=== PATIENT | female | born 1995 | race American Indian/Alaskan Native ===

== ENCOUNTER 2018-09-21 00:20 | Emergency (ER) | payer OTHER ==
[2018-09-21 01:04] LABS: Basophils % (Auto) 0.4 % (0.0-1.8); Eosinophils % (Auto) 0.1 % (0.0-4.3); Hematocrit 41.4 % (30.3-42.9); Hemoglobin 13.7 gm/dl (10.1-14.3); Lymphocytes # (Auto) 1.4 K/mm3 (1.2-5.4); Lymphocytes % (Auto) 20.2 % (13.4-35.0); Mean Corpuscular HGB Conc 33 % (30-34); Mean Corpuscular Volume 87 fl (79-97); Monocytes # (Auto) 0.3 K/mm3 (0.0-0.8); Monocytes % (Auto) 4.1 % (0.0-7.3); Platelet Count 239 K/mm3 (140-440); Red Blood Count 4.74 M/mm3 (3.65-5.03); Red Cell Distribution Width 13.1 % (13.2-15.2)
[2018-09-21 01:28] LABS: Alanine Aminotransferase 25 units/L (7-56); Albumin 4.8 g/dL (3.9-5); BUN/Creatinine Ratio 19; Blood Urea Nitrogen 13 mg/dL (7-17); Calcium 9.7 mg/dL (8.4-10.2); Hemolysis Index 2
[2018-09-21 01:58] LABS: Bilirubin,Urine SM (Negative); Blood,Urine MOD (Negative); Color,Urine Amber (Yellow); Mucus,Urine 3+ /HPF; Urobilinogen,Urine < 2.0 mg/dL (<2.0)
[2018-09-21 02:06] LABS: Ictotest,Urine Negative (Negative)
[2018-09-21] MEDS ORDERED: ZOFRAN ONE (02:07)
[2018-09-21] MEDS ORDERED: NACL 0.9% 1000 ML 1,000 ML ONE (02:07)
[2018-09-21] MEDS ORDERED: D50W (25GM) Syringe IV ONE (02:07)
[2018-09-21] MEDS ORDERED: HumuLIN R ONE ×2 (02:09→02:22)
[2018-09-21] MEDS ORDERED: DILAUDID ONE (02:11)
[2018-09-21] MEDS ORDERED: ZOFRAN IV ONE (02:22)
[2018-09-21] MEDS ORDERED: MORPHINE IV ONE (02:22)
[2018-09-21] MEDS ORDERED: NACL 0.9% 1000 ML 1,000 ML IV ONE (02:22)
--- NOTE | 2018-09-21 03:33 | Emergency Department Report ---
ED N/V/D HPI - General Chief complaint: Abdominal Pain Stated complaint: ABDOMINAL PAIN, NAUSEA AND VOMITING Time Seen by Provider: 09/21/18 01:46 Source: patient, family Mode of arrival: Ambulatory Limitations: No Limitations - History of Present Illness Initial comments: 23-year-old female presents to ED with complaint of her abdominal pain, nausea, vomiting, diarrhea 1 day. Patient denies fever or sick contacts. Patient states pain is located in diffuse abdomen, crampy in nature, but worse in the epigastric area. Patient is currently on her menstrual period. MD complaint: nausea, vomiting, diarrhea, abdominal pain -: days(s) (1) Description of Vomiting: food contents Description of Diarrhea: water Associated Abdominal Pain: Yes Location: epigastric Radiation: other (to diffuse abdomen) Severity: moderate Quality: cramping Consistency: constant Improves with: none Worsens with: none Associated Symptoms: nausea/vomiting. denies: fever/chills - Related Data Previous Rx's Medication Instructions Recorded Last Taken Type Dicyclomine [Bentyl] 20 mg PO QID PRN #20 tablet 09/21/18 Unknown Rx Ondansetron [Zofran Odt] 4 mg PO Q8HR PRN #20 tab.rapdis 09/21/18 Unknown Rx Allergies Allergy/AdvReac Type Severity Reaction Status Date / Time No Known Allergies Allergy Verified 09/21/18 02:25 ED Review of Systems ROS: Stated complaint: ABDOMINAL PAIN, NAUSEA AND VOMITING Other details as noted in HPI Comment: All other systems reviewed and negative Constitutional: denies: chills, fever Gastrointestinal: abdominal pain, nausea, vomiting, diarrhea ED Past Medical Hx - Past Medical History Previous Medical History?: No - Surgical History Past Surgical History?: No - Social History Smoking Status: Never Smoker Substance Use Type: Marijuana - Medications Home Medications: Home Medications Medication Instructions Recorded Confirmed Last Taken Type Dicyclomine [Bentyl] 20 mg PO QID PRN #20 tablet 09/21/18 Unknown Rx Ondansetron [Zofran Odt] 4 mg PO Q8HR PRN #20 tab.rapdis 09/21/18 Unknown Rx ED Physical Exam - General Limitations: No Limitations General appearance: alert, in no apparent distress - Head Head exam: Present: atraumatic, normocephalic - Eye Eye exam: Present: normal appearance - ENT ENT exam: Present: mucous membranes moist - Neck Neck exam: Present: normal inspection - Respiratory Respiratory exam: Present: normal lung sounds bilaterally. Absent: respiratory distress - Cardiovascular Cardiovascular Exam: Present: regular rate, normal rhythm - GI/Abdominal GI/Abdominal exam: Present: soft, tenderness (mild diffuse tenderness, worse in epigastric region). Absent: distended - Extremities Exam Extremities exam: Present: normal inspection - Neurological Exam Neurological exam: Present: alert, oriented X3 - Psychiatric Psychiatric exam: Present: normal affect, normal mood - Skin Skin exam: Present: warm, dry, intact, normal color. Absent: rash ED Course Vital Signs 09/21/18 09/21/18 09/21/18 02:11 02:22 03:00 Temperature 98.3 F Pulse Rate 73 Respiratory 18 Rate Blood Pressure 125/86 120/87 Blood Pressure 125/86 [Left] O2 Sat by Pulse 100 98 100 Oximetry ED Medical Decision Making - Lab Data Result diagrams: 09/21/18 00:37 09/21/18 00:37 - Medical Decision Making 23 yo F with gastroenteritis. Labs normal, vitals normal. IV fluids, morphine, zofran given. Tolerated PO. Will d/c at this time. Rx given for zofran and bentyl. Return precautions given - Differential Diagnosis pancreatitis, gastritis, gastroenteritis Critical care attestation.: If time is entered above; I have spent that time in minutes in the direct care of this critically ill patient, excluding procedure time. ED Disposition Clinical Impression: Acute gastroenteritis Disposition: DC-01 TO HOME OR SELFCARE Is pt being admited?: No Condition: Stable Instructions: Gastroenteritis (ED), Acute Nausea and Vomiting (ED) Prescriptions: Dicyclomine [Bentyl] 20 mg PO QID PRN #20 tablet PRN Reason: abdominal pain Ondansetron [Zofran Odt] 4 mg PO Q8HR PRN #20 tab.rapdis PRN Reason: Vomiting Referrals: [facility] [Provider Group] - 3-5 Days [facility] [Provider Group] - 3-5 Days Forms: Work/School Release Form(ED) Time of Disposition: 03:32
[2018-09-21 04:59] VITALS: BP 110/55
== END 2018-09-21 04:05 | disposition home or self-care (01) ==
LOC: ED 00:20
DX: K52.9 Noninfective gastroenteritis and colitis, unspecified (principal); F12.10 Cannabis abuse, uncomplicated
CPT/HCPCS: 36415; 80053; 81001; 83690; 84703; 85025; 87086; 96361; 96374; 96375; 99283; J2270; J2405; J7030; J1170; J1815

== ENCOUNTER 2018-09-22 00:19 | Emergency (ER) | payer OTHER ==
[2018-09-22 01:06] VITALS: BP 116/81
[2018-09-22] MEDS ORDERED: ZOFRAN IV ONE (01:23)
[2018-09-22] MEDS ORDERED: TORADOL IV ONE (01:23)
[2018-09-22] MEDS ORDERED: NACL 0.9% 1000 ML 1,000 ML IV ONE (01:23)
[2018-09-22] MEDS ORDERED: HALDOL IM ONE (01:32)
--- NOTE | 2018-09-22 01:36 | Emergency Department Report ---
ED N/V/D HPI - General Chief complaint: Nausea/Vomiting/Diarrhea Stated complaint: XRAY/ULTRASOUND Time Seen by Provider: 09/22/18 01:22 Source: patient Mode of arrival: Ambulatory Limitations: No Limitations - History of Present Illness Initial comments: 23-year-old female presents to ED with complaint of nausea, vomiting, abdominal pain. Patient seen by me for same on yesterday. At that time labs and vitals were normal. No emesis occurred in the ED and patient tolerated by mouth prior to discharge. Caleb, mother accompanies patient again, and states that patient has "projectile vomiting" and is still complaining same epigastric pain. Today I questioned patient about marijuana use. Patient admits to smoking marijuana "every other day," but has not had any since onset of symptoms. States diarrhea has resolved. MD complaint: nausea, vomiting, abdominal pain -: days(s) (3) Description of Vomiting: bilious Associated Abdominal Pain: Yes Location: epigastric Radiation: other (diffuse abdomen) Severity: moderate Quality: cramping Consistency: constant Improves with: none Worsens with: none Associated Symptoms: denies: fever/chills - Related Data Previous Rx's Medication Instructions Recorded Last Taken Type Dicyclomine [Bentyl] 20 mg PO QID PRN #20 tablet 09/21/18 Unknown Rx Ondansetron [Zofran Odt] 4 mg PO Q8HR PRN #20 tab.rapdis 09/21/18 Unknown Rx Promethazine [Phenergan TAB] 25 mg PO Q6HR PRN #20 tab 09/22/18 Unknown Rx Allergies Allergy/AdvReac Type Severity Reaction Status Date / Time No Known Allergies Allergy Verified 09/21/18 02:25 ED Review of Systems ROS: Stated complaint: XRAY/ULTRASOUND Other details as noted in HPI Comment: All other systems reviewed and negative Constitutional: denies: chills, fever Gastrointestinal: abdominal pain, nausea, vomiting ED Past Medical Hx - Past Medical History Previous Medical History?: No - Surgical History Past Surgical History?: No - Social History Smoking Status: Never Smoker Substance Use Type: None - Medications Home Medications: Home Medications Medication Instructions Recorded Confirmed Last Taken Type Dicyclomine [Bentyl] 20 mg PO QID PRN #20 tablet 09/21/18 Unknown Rx Ondansetron [Zofran Odt] 4 mg PO Q8HR PRN #20 tab.rapdis 09/21/18 Unknown Rx Promethazine [Phenergan TAB] 25 mg PO Q6HR PRN #20 tab 09/22/18 Unknown Rx ED Physical Exam - General Limitations: No Limitations General appearance: alert, in no apparent distress, other (appears uncomfortable) - Head Head exam: Present: atraumatic, normocephalic - Eye Eye exam: Present: normal appearance, PERRL, EOMI - ENT ENT exam: Present: mucous membranes moist - Neck Neck exam: Present: normal inspection - Respiratory Respiratory exam: Present: normal lung sounds bilaterally. Absent: respiratory distress - Cardiovascular Cardiovascular Exam: Present: regular rate, normal rhythm - GI/Abdominal GI/Abdominal exam: Present: soft, tenderness (mild diffuse abdominal tenderness, worse in epigastric area). Absent: distended - Extremities Exam Extremities exam: Present: normal inspection - Neurological Exam Neurological exam: Present: alert, oriented X3 - Psychiatric Psychiatric exam: Present: normal affect, normal mood - Skin Skin exam: Present: warm, dry, intact, normal color ED Course Vital Signs 09/22/18 09/22/18 01:04 02:16 Temperature 98.5 F Pulse Rate 76 Respiratory 18 17 Rate Blood Pressure 116/81 O2 Sat by Pulse 100 Oximetry - Consultations Consultation #1: 09/22/18 03:[address] scan. States just wants to go home. No emesis here in ED. Low likelihood for intraabdominal pathology given normal labs and vitals. Phenergan rx and GI follow-up given. Risks of leaving prior to end of workup explained to patient and mother. They understand. AMA form signed. ED Medical Decision Making - Lab Data Result diagrams: 09/22/18 01:35 09/22/18 01:37 - Differential Diagnosis gastroenteritis, gastritis, cannabinoid hyperemesis syndrome Critical care attestation.: If time is entered above; I have spent that time in minutes in the direct care of this critically ill patient, excluding procedure time. ED Disposition Clinical Impression: Nausea & vomiting, Abdominal pain Disposition: -07 LEFT AGAINST MED ADVICE Is pt being admited?: No Condition: Stable Instructions: Acute Nausea and Vomiting (ED), Cannabis Abuse (ED) Prescriptions: Promethazine [Phenergan TAB] 25 mg PO Q6HR PRN #20 tab PRN Reason: Nausea Referrals: [facility] [Provider Group] - 3-5 Days Forms: AMA Form Time of Disposition: 03:23
[2018-09-22 01:56] LABS: Basophils % (Auto) 0.6 % (0.0-1.8); Eosinophils % (Auto) 0.3 % (0.0-4.3); Hemoglobin 13.7 gm/dl (10.1-14.3); Lymphocytes # (Auto) 1.4 K/mm3 (1.2-5.4); Lymphocytes % (Auto) 19.9 % (13.4-35.0); Mean Corpuscular HGB Conc 33 % (30-34); Mean Corpuscular Volume 88 fl (79-97); Monocytes # (Auto) 0.4 K/mm3 (0.0-0.8); Monocytes % (Auto) 5.3 % (0.0-7.3); Red Cell Distribution Width 13.3 % (13.2-15.2)
[2018-09-22 02:04] LABS: Platelet Count 176 K/mm3 (140-440)
[2018-09-22 02:14] LABS: Alanine Aminotransferase 22 units/L (7-56); Albumin 4.5 g/dL (3.9-5); BUN/Creatinine Ratio 18; Blood Urea Nitrogen 14 mg/dL (7-17); Calcium 9.6 mg/dL (8.4-10.2); Hemolysis Index 11
== END 2018-09-22 03:30 | disposition left against medical advice (07) ==
LOC: ED 00:19
DX: R11.2 Nausea with vomiting, unspecified (principal); R10.9 Unspecified abdominal pain
CPT/HCPCS: 36415; 80053; 83690; 85025; 96361; 96372; 96374; 96375; 99283; J1630; J1885; J2405; J7030

== ENCOUNTER 2019-05-06 09:46 | Emergency (ER) | payer SELFPAY ==
[2019-05-06 10:14] VITALS: BP 129/76
--- NOTE | 2019-05-06 11:58 | Event Note ---
ED Screening Note ED Screening Note: intermittent chest tightness for a month no cough states occasionally she has difficulty breathing +nausea she states that it occurs around 3:00 in the morning states that she feels overwhelmed and anxious when it happens states she feels like it is anxiety states she has no symptoms at all when she is not feeling anxious no vomiting PMHx none no allergies to meds she also states that she feels pressure/indigestion, she states she has been eating unhealthy and believes it is giving her acid reflux +smoker, daily
--- NOTE | 2019-05-06 12:03 | Emergency Department Report ---
Chief Complaint: Upper Respiratory Infection Stated Complaint: CP Time Seen by Provider: 05/06/19 11:52 - HPI History of Present Illness: intermittent chest tightness for a month no cough states occasionally she has difficulty breathing +nausea she states that it occurs around 3:00 in the morning states that she feels overwhelmed and anxious when it happens states she feels like it is anxiety states she has no symptoms at all when she is not feeling anxious no vomiting no syncope no palpitations no leg swelling no recent travel, surgery, or immobilization PMHx none no allergies to meds she also states that she feels pressure/indigestion, she states she has been eating unhealthy and believes it is giving her acid reflux +smoker, daily at night vitals are normal On exam: Non toxic appearing, no acute distress atraumatic, normocephalic normal appearance of the eyes, PERRL, EOMI, no periorbital edema or ecchymosis moist mucus membranes regular heart rate and rhythm, no gallops, no rubs, no murmurs, no chest wall ttp breath sounds are clear bilaterally, no w/r/r, stridor A&O x4, no focal neuro deficit skin is warm, dry, intact No abnormality on physical examination as documented in chart. Vitals are completely normal. PERC criteria negative for PE. Patient symptoms could be related to anxiety and acid reflux. advised pt to please use coping mechanism, meditation, take a walk. please stop smoking marijuana as this can worsen anxiety. please follow up with a therapist. please follow up with a primary care doctor. please use pepcid over the counter for 12 weeks. return to the emergency room for any new or worsening symptoms or if feel thoughts of wanting to hurt yourself or others. No clinical signs or symptoms of asthma or pneumonia pt denies any SI or HI Patient is presenting with a nonmedical emergency at this time, medical scr eening examination performed and there is no threat to life or limb at this time Patient will be referred to the appropriate resources Discussed in detail strict return precautions with patient - Exam Vital Signs: Vital Signs 05/06/19 10:12 Temperature 98.8 F Pulse Rate 90 Respiratory 18 Rate Blood Pressure 129/76 O2 Sat by Pulse 99 Oximetry MSE screening note: Focused history and physical exam performed. ED Disposition for MSE Clinical Impression: Anxiety GERD (gastroesophageal reflux disease) Qualifiers: Esophagitis presence: without esophagitis Qualified Code(s): K21.9 - Gastro- esophageal reflux disease without esophagitis Disposition: MED SCREENING EXAM-LEFT Is pt being admited?: No Does the pt Need Aspirin: No Condition: Stable Instructions: Diet for Ulcers and Gastritis (ED), Gastroesophageal Reflux Disease (ED), Anxiety (ED) Additional Instructions: please use coping mechanism, meditation, take a walk. please stop smoking marijuana as this can worsen anxiety. please follow up with a therapist. please follow up with a primary care doctor. please use pepcid over the counter for 12 weeks. return to the emergency room for any new or worsening symptoms or if feel thoughts of wanting to hurt yourself or others. Referrals: RADHA RICHEY MD [Primary Care Provider] - 2-3 Days [facility] [Outside] - 2-3 Days Time of Disposition: 12:02 Print Language: MALTESE
== END 2019-05-06 12:41 | disposition left against medical advice (07) ==
LOC: ED 09:46
DX: K21.9 Gastro-esophageal reflux disease without esophagitis (principal); F41.9 Anxiety disorder, unspecified
CPT/HCPCS: 99281

== ENCOUNTER 2019-06-23 19:03 | Inpatient (IN) | payer OTHER ==
[2019-06-23 19:50] LABS: Basophils % (Auto) 0.5 % (0.0-1.8); Eosinophils % (Auto) 0.4 % (0.0-4.3); Hematocrit 42.3 % (30.3-42.9); Hemoglobin 13.7 gm/dl (10.1-14.3); Lymphocytes # (Auto) 2.2 K/mm3 (1.2-5.4); Lymphocytes % (Auto) 29.9 % (13.4-35.0); Mean Corpuscular HGB Conc 32 % (30-34); Mean Corpuscular Volume 89 fl (79-97); Monocytes # (Auto) 0.4 K/mm3 (0.0-0.8); Monocytes % (Auto) 5.8 % (0.0-7.3); Platelet Count 264 K/mm3 (140-440); Red Blood Count 4.78 M/mm3 (3.65-5.03)
[2019-06-23 20:12] LABS: Alanine Aminotransferase 13 units/L (7-56); Albumin 4.7 g/dL (3.9-5); BUN/Creatinine Ratio 17; Blood Urea Nitrogen 10 mg/dL (7-17); Calcium 9.9 mg/dL (8.4-10.2); Hemolysis Index 28
[2019-06-23] MEDS ORDERED: FAMOTIDINE 20 MG/2 ML INJ IV ONE (20:26)
[2019-06-23] MEDS ORDERED: SODIUM CHLORIDE 0.9% 1000 ML 1,000 ML IV ONE (20:26)
[2019-06-23] MEDS ORDERED: ONDANSETRON 4 MG/2 ML INJ IV ONE (20:26)
[2019-06-23] MEDS ORDERED: MORPHINE 4 MG/1 ML INJ IV ONE (20:26)
--- NOTE | 2019-06-23 21:16 | Emergency Department Report ---
ED Abdominal Pain HPI - General Chief Complaint: Abdominal Pain Stated Complaint: ABD PAIN, VOMITTING Source: patient Mode of arrival: Ambulatory Limitations: No Limitations - History of Present Illness Initial Comments: Patient is a A1 24-year-old -[place] female with no past medical history who presents to the ED with complaint of acute onset persistent diffuse abdominal pain that radiates to the right lower quadrant area with intermittent intractable nausea and vomiting for the last 12 hours. Patient states that in the last 6 hours the pain has worsened. Patient states that she tried to take Tylenol with no relief. Patient denies dizziness, syncope, chest pain, shortness of breath, fever, chills, dysuria, urinary frequency and urgency, vaginal bleeding, vaginal discharge, diarrhea, cough, sore throat or back pain and dyspareunia. MD Complaint: abdominal pain (Diffuse in lower abdomen, but worse on RLQ ), other (Nausea and vomiting; Dysmenorrhea) -: Sudden, hour(s) (12) Location: diffuse, RLQ, suprapubic Radiation: RLQ, suprapubic Migration to: no migration Severity: severe Severity scale (0 -10): 7 Quality: cramping, aching, sharp Consistency: constant Improves With: nothing Worsens With: nothing Context: other (Menstrual cycle) Associated Symptoms: denies other symptoms, nausea, vomiting. denies: diarrhea, fever, constipation, dysuria, hematemesis, hematochezia, melena, hematuria, anorexia, syncope Treatments Prior to Arrival: other (Tylenol ) - Related Data LMP Date: 06/17/19 Previous Rx's Medication Instructions Recorded Last Taken Type Dicyclomine [Bentyl] 20 mg PO QID PRN #20 tablet 09/21/18 Unknown Rx Ondansetron [Zofran Odt] 4 mg PO Q8HR PRN #20 tab.rapdis 09/21/18 Unknown Rx Promethazine [Phenergan TAB] 25 mg PO Q6HR PRN #20 tab 09/22/18 Unknown Rx Allergies Allergy/AdvReac Type Severity Reaction Status Date / Time No Known Allergies Allergy Verified 09/21/18 02:25 ED Review of Systems ROS: Stated complaint: ABD PAIN, VOMITTING Other details as noted in HPI Constitutional: denies: chills, fever Eyes: denies: eye pain, eye discharge, vision change ENT: denies: ear pain, throat pain Respiratory: denies: cough, shortness of breath, SOB with exertion, wheezing Cardiovascular: denies: chest pain, palpitations Endocrine: no symptoms reported Gastrointestinal: abdominal pain (RLQ), nausea, vomiting. denies: diarrhea Genitourinary: denies: urgency, dysuria, discharge Musculoskeletal: denies: back pain, joint swelling, arthralgia Skin: denies: rash, lesions Neurological: denies: headache, weakness, paresthesias Psychiatric: denies: anxiety, depression Hematological/Lymphatic: denies: easy bleeding, easy bruising ED Past Medical Hx - Past Medical History Previous Medical History?: No - Surgical History Past Surgical History?: No - Social History Smoking Status: Never Smoker Substance Use Type: None - Medications Home Medications: Home Medications Medication Instructions Recorded Confirmed Last Taken Type Dicyclomine [Bentyl] 20 mg PO QID PRN #20 tablet 09/21/18 Unknown Rx Ondansetron [Zofran Odt] 4 mg PO Q8HR PRN #20 tab.rapdis 09/21/18 Unknown Rx Promethazine [Phenergan TAB] 25 mg PO Q6HR PRN #20 tab 09/22/18 Unknown Rx ED Physical Exam - General Limitations: No Limitations General appearance: alert, in no apparent distress - Head Head exam: Present: atraumatic, normocephalic - Eye Eye exam: Present: normal appearance, PERRL, EOMI, scleral icterus Pupils: Present: normal accommodation - ENT ENT exam: Present: normal exam, normal orophraynx, mucous membranes moist, TM's normal bilaterally, normal external ear exam - Neck Neck exam: Present: normal inspection, full ROM. Absent: tenderness, meningismus - Respiratory Respiratory exam: Present: normal lung sounds bilaterally. Absent: respiratory distress, wheezes, chest wall tenderness, accessory muscle use - Cardiovascular Cardiovascular Exam: Present: regular rate, normal rhythm, normal heart sounds. Absent: systolic murmur, diastolic murmur, rubs, gallop - GI/Abdominal GI/Abdominal exam: Present: soft, tenderness (Palpable diffuse abdominal tenderness worse in the right lower quadrant area), normal bowel sounds, hyperactive bowel sounds. Absent: guarding, rebound - Extremities Exam Extremities exam: Present: normal inspection, full ROM, normal capillary refill - Back Exam Back exam: Present: normal inspection, full ROM. Absent: muscle spasm - Neurological Exam Neurological exam: Present: alert, oriented X3, CN II-XII intact, normal gait, reflexes normal - Psychiatric Psychiatric exam: Present: normal affect, normal mood - Skin Skin exam: Present: warm, dry, intact, normal color. Absent: rash ED Course Vital Signs 06/23/19 19:09 Temperature 98.7 F Pulse Rate 72 Respiratory 18 Rate Blood Pressure 127/86 O2 Sat by Pulse 100 Oximetry ED Medical Decision Making - Lab Data Result diagrams: 06/23/19 19:28 06/23/19 19:28 - Radiology Data Radiology results: report reviewed, image reviewed Findings [facility] [address] [place] [address] Cat Scan Report Signed Patient: EMMA SINGH MR#: [id number] : 1995 Acct:[id number] Age/Sex: 24 / F ADM Date: 06/23/19 Loc: ED Attending Dr: Ordering Physician: MICHELL LÓPEZ Date of Service: 06/23/19 Procedure(s): CT abdomen pelvis w con Accession Number(s): [id number] cc: MICHELL LÓPEZ CT of the abdomen and pelvis with contrast INDICATION: Right lower quadrant pain COMPARISON: None FINDINGS: Lung bases are clear. Small hepatic cyst is seen. The spleen, pancreas, adrenal glands and kidneys are unremarkable. No definite gallbladder or biliary tree abnormality. No fluid or adenopathy in the upper abdomen. There are dilated mid abdominal small bowel loops measuring up to 3.8 cm in diameter without definite wall thickening. CT of the pelvis shows a normal collapsed terminal ileum. The appendix is not definitely seen. There are dilated small bowel loops extending into the pelvis. No uterine or adnexal masses. There is only trace free pelvic fluid. No diverticulosis or diverticulitis. No pelvic inflammatory process seen. IMPRESSION: Relatively severe mid abdominal mechanical small bowel obstruction of uncertain etiology. The appendix is not seen but there is no definite inflammatory process identified. Automated exposure control was utilized to diminish radiation dose. Signer Name: Nithin Almodovar MD Signed: 06/23/2019 9:36 PM Workstation Name: [id number] Transcribed By: JOLANTA Dictated By: Nithin Almodovar MD Electronically Authenticated By: Nithin Almodovar MD Signed Date/Time: 06/23/192135 DD/ 26 TD/TT: - Medical Decision Making This is a A1 24-year-old -[place] female with no past medical history who presents to the ED with complaint of acute onset persistent diffuse abdominal pain that radiates to the right lower quadrant area with intermittent intractable nausea and vomiting for the last 12 hours. Patient states that in t he last 6 hours the pain has worsened. Patient states that she tried to take Tylenol with no relief. In the ED, patient is alert and oriented x3 and is not in any distress but appears to be in significant pain. Patient was treated for pain and also given normal saline 1 L IV bolus x1, also treated for nausea and vomiting. Lab test results were reviewed and are all nonactionable. Abdomen pelvis CT scan with contrast shows a relatively severe mid abdominal mechanical small bowel obstruction of uncertain etiology. The appendix is not seen but there is no definite inflammatory process identified. These findings were discussed with the ED attending physician Dr. Haas who advised that the general surgeon be paged for further plan of care. I therefore paged and discussed the patient's findings with the general surgeon on-call Dr. Kaye who advised that an NG tube be inserted into the patient and that the patient be admitted by the hospitalist physician and she shall consult in the morning. Therefore paged and discussed the patient's case with the hospitalist physician on-call Dr. Correa who admitted the patient to the hospital. - Differential Diagnosis Appendicitis; SBO; Ovarian cyst; UTI; Ectopic Critical care attestation.: If time is entered above; I have spent that time in minutes in the direct care of this critically ill patient, excluding procedure time. ED Disposition Clinical Impression: Nausea and vomiting in adult, Small bowel obstruction Abdominal pain Qualifiers: Abdominal location: lower abdomen, unspecified Qualified Code(s): R10.30 - Lower abdominal pain, unspecified Disposition: OP ADMIT IP TO THIS HOSP Is pt being admited?: Yes Does the pt Need Aspirin: No Condition: Stable Instructions: Abdominal Pain (ED) Referrals: PRIMARY CARE, [Primary Care Provider] - 3-5 Days Time of Disposition: 22:16 Print Language: KYRGYZ
[2019-06-23 21:31] LABS: Bilirubin,Urine SM (Negative); Blood,Urine MOD (Negative); Color,Urine Amber (Yellow); Mucus,Urine 3+ /HPF; Urobilinogen,Urine < 2.0 mg/dL (<2.0)
[2019-06-23 21:41] LABS: Ictotest,Urine Negative (Negative)
--- NOTE | 2019-06-23 21:41 | Cat Scan Report ---
CT of the abdomen and pelvis with contrast INDICATION: Right lower quadrant pain COMPARISON: None FINDINGS: Lung bases are clear. Small hepatic cyst is seen. The spleen, pancreas, adrenal glands and kidneys are unremarkable. No definite gallbladder or biliary tree abnormality. No fluid or adenopathy in the upper abdomen. There are dilated mid abdominal small bowel loops measuring up to 3.8 cm in di ameter without definite wall thickening. CT of the pelvis shows a normal collapsed terminal ileum. The appendix is not definitely seen. There are dilated small bowel loops extending into the pelvis. No uterine or adnexal masses. There is only trace free pelvic fluid. No diverticulosis or diverticulitis. No pelvic inflammatory process seen. IMPRESSION: Relatively severe mid abdominal mechanical small bowel obstruction of uncertain etiology. The appendix is not seen but there is no definite inflammatory process identified. Automated exposure control was utilized to diminish radiation dose. Signer Name: Nithin Almodovar MD Signed: 06/23/2019 9:36 PM Workstation Name: [id number]
[2019-06-23] MEDS ORDERED: LORazepam 2 MG/ML VIAL IV ONE (22:05)
[2019-06-23] MEDS ORDERED: ACETAMINOPHEN 650 MG RECT SUPP PR PRN (22:41)
--- NOTE | 2019-06-23 22:47 | History and Physical Report ---
History of Present Illness History of present illness: 24-year-old woman with no medical problems comes emergency room for evaluation. Patient states that 6 days ago she started having abdominal pain, mid abdomen radiating to the right upper quadrant, lasting for minutes to hours at times, intensity 7/10, relieved with IV morphine given in the emergency room. Also complaining of nausea vomiting unable to tolerate oral intake. She has been having non-diarrhea for 2 weeks. Patient will be admitted for small bowel obstruction Review Of Systems: Constitutional: no weight loss, fever, chills Ears, eyes, nose, mouth and throat: no nasal congestion, no nasal discharge, no sinus pressure, blurry vision, diplopia Neck: No neck pain or rigidity. Cardiovascular: No palpitations, chest pain Respiratory: No shortness of breath, cough Gastrointestinal: No hematochezia Genitourinary : no dysuria, frequency Musculoskeletal: no muscle ache , joint pain Integumentary: no rash, no pruritis Neurological: no parathesias, focal weakness Endocrine: no cold or heat intolerance, no polyuria or polydipsia Hematologic/Lymphatic: no easy bruising, no easy bleeding, no gland swelling Allergic/Immunologic: no urticaria, no angioedema. PAST MEDICAL HISTORY: None PAST SURGICAL HISTORY:None SOCIAL HISTORY: Denies alcohol, tobacco, drugs FAMILY HISTORY: Hypertension PUI?: No Medications and Allergies Allergies Allergy/AdvReac Type Severity Reaction Status Date / Time No Known Allergies Allergy Verified 09/21/18 02:25 Home Medications Medication Instructions Recorded Confirmed Last Taken Type No Known Home Medications [No 06/23/19 06/23/19 Unknown History Reported Home Medications] Active Meds: Active Medications Enoxaparin Sodium (Enoxaparin) 40 mg SUB-Q QDAY@1000 [facility] Exam - Constitutional Vitals: Temp Pulse Resp BP Pulse Ox 98.7 F 72 18 127/86 100 06/23/19 19:09 06/23/19 19:09 06/23/19 19:09 06/23/19 19:09 06/23/19 19:09 Results - Labs CBC & Chem 7: 06/23/19 19:28 06/23/19 19:28 Labs: Abnormal lab results 06/23/19 06/23/19 06/23/19 Range/Units 19:28 19:28 Unknown RDW 13.0 L (13.2-15.2) % Carbon Dioxide 20 L (22-30) mmol/L Creatinine 0.6 L (0.7-1.2) mg/dL Ur Specific [place] 1.035 H (1.003-1.030) - Imaging and Cardiology CT scan - abdomen: report reviewed CT scan - pelvis: report reviewed Assessment and Plan Assessment Small bowel obstruction Placed on bowel rest, start IV fluid Surgery was consulted see the patient IV morphine, DVT prophylaxis
--- NOTE | 2019-06-24 00:25 | XRay Report ---
ABDOMEN 1 VIEW 11:49 PM INDICATION / CLINICAL INFORMATION: ng placement. COMPARISON: None available. FINDINGS: TUBES / LINES: Esophagogastric tube has been placed with the tip in the mid to distal stomach. BOWEL GAS PATTERN: No significant abnormality. FREE AIR / EXTRALUMINAL GAS: None seen. ADDITIONAL FINDINGS: No significant additional findings. IMPRESSION: 1. Esophagogastric tube in expected position. Signer Name: Edel Yoder MD Signed: 06/24/2019 12:21 AM Workstation Name: [id number]
[2019-06-24] MEDS: SODIUM CHLORIDE 0.9% 1000 ML 1,000 ML IV SCH ×3 (01:18→18:00)
[2019-06-24] MEDS: ONDANSETRON 4 MG/2 ML INJ IV PRN ×2 (05:36→17:59)
[2019-06-24 05:55] LABS: Basophils % (Auto) 0.4 % (0.0-1.8); Eosinophils % (Auto) 0.4 % (0.0-4.3); Hematocrit 38.4 % (30.3-42.9); Hemoglobin 12.6 gm/dl (10.1-14.3); Lymphocytes # (Auto) 1.8 K/mm3 (1.2-5.4); Lymphocytes % (Auto) 29.1 % (13.4-35.0); Mean Corpuscular HGB Conc 33 % (30-34); Mean Corpuscular Volume 88 fl (79-97); Monocytes # (Auto) 0.5 K/mm3 (0.0-0.8); Monocytes % (Auto) 8.2 % (0.0-7.3); Platelet Count 251 K/mm3 (140-440); Red Blood Count 4.37 M/mm3 (3.65-5.03)
[2019-06-24 06:09] LABS: BUN/Creatinine Ratio 17; Blood Urea Nitrogen 10 mg/dL (7-17); Calcium 8.8 mg/dL (8.4-10.2); Hemolysis Index 2
--- NOTE | 2019-06-24 07:40 | Consultation ---
History of Present Illness Consult date: 06/24/19 Reason for consult: abdominal pain - History of present illness History of present illness: 24 year old female admitted from ED where she presented with a one week history of worsening abdominal pain, that had one day of nausea and vomiting. She thought it was related to her menses as she has similar symptoms before but not as severe. She had a CT scan that showed dilated small bowel loops c/s bowel obstruction. She had an NGT placed and says since then she feels much better with the exception of a sore throat from the NGT. She has since had a bowel movement and been passing flatus. She had an abdominal x-ray to confirm tube placement that showed normal gas pattern. Past History Past Medical History: No medical history Past Surgical History: No surgical history Social history: no significant social history Medications and Allergies Allergies Allergy/AdvReac Type Severity Reaction Status Date / Time No Known Allergies Allergy Verified 09/21/18 02:25 Home Medications Medication Instructions Recorded Confirmed Last Taken Type No Known Home Medications [No 06/23/19 06/23/19 Unknown History Reported Home Medications] Active Meds: Active Medications Acetaminophen (Tylenol) 650 mg [place] Q4H PRN PRN Reason: Pain MILD(1-3)/Fever >100.5/MILLER Enoxaparin Sodium (Enoxaparin) 40 mg SUB-Q QDAY@1000 LAINE Sodium Chloride (Nacl 0.9% 1000 Ml) 1,000 mls @ 125 mls/hr IV DIRECT LAINE Last Admin: 06/24/19 01:18 Dose: 125 mls/hr Documented by: Morphine Sulfate (Morphine) 2 mg IV Q4H PRN PRN Reason: Pain, Moderate (4-6) Ondansetron HCl (Zofran) 4 mg IV Q4H PRN PRN Reason: Nausea And Vomiting Last Admin: 06/24/19 05:36 Dose: 4 mg Documented by: Sodium Chloride (Sodium Chloride Flush Syringe 10 Ml) 10 ml IV BID LAINE Sodium Chloride (Sodium Chloride Flush Syringe 10 Ml) 10 ml IV PRN PRN PRN Reason: LINE FLUSH Review of Systems - Constitutional no weight loss - Respiratory no cough - Gastrointestinal no abdominal pain, no nausea, no vomiting Exam Vital Signs Temp Pulse Resp BP Pulse Ox 98.7 F 72 18 127/86 100 06/23/19 19:09 06/23/19 19:09 06/23/19 19:09 06/23/19 19:09 06/23/19 19:09 - General physical appearance Positive: well developed, well nourished, no distress, no pain - Respiratory Positive: normal expansion, normal respiratory effort - Extremities Extremities: no ischemia - Abdomen Abdomen: Present: soft. Absent: tender, rebound, guarding, rigid Hernia: none Results - Labs 06/24/19 05:09 06/24/19 05:09 Abnormal lab results 06/23/19 06/23/19 06/23/19 Range/Units 19:28 19:28 Unknown RDW 13.0 L (13.2-15.2) % [place] % (Auto) (0.0-7.3) % Carbon Dioxide 20 L (22-30) mmol/L Creatinine 0.6 L (0.7-1.2) mg/dL Ur Specific [place] 1.035 H (1.003-1.030) 06/24/19 06/24/19 Range/Units 05:09 05:09 RDW 13.0 L (13.2-15.2) % [place] % (Auto) 8.2 H (0.0-7.3) % Carbon Dioxide (22-30) mmol/L Creatinine 0.6 L (0.7-1.2) mg/dL Ur Specific [place] (1.003-1.030) Diabetes panel 06/23/19 06/24/19 Range/Units 19:28 05:09 Sodium 140 142 (137-145) mmol/L Potassium 3.7 4.0 (3.6-5.0) mmol/L Chloride 101.1 106.4 (98-107) mmol/L Carbon Dioxide 20 L 22 (22-30) mmol/L BUN 10 10 (7-17) mg/dL Creatinine 0.6 L 0.6 L (0.7-1.2) mg/dL Glucose 100 99 (65-100) mg/dL Calcium 9.9 8.8 (8.4-10.2) mg/dL AST 17 (5-40) units/L ALT 13 (7-56) units/L Alkaline Phosphatase 94 (35-129) units/L Total Protein 8.0 (6.3-8.2) g/dL Albumin 4.7 (3.9-5) g/dL Calcium panel 06/23/19 06/24/19 Range/Units 19:28 05:09 Calcium 9.9 8.8 (8.4-10.2) mg/dL Albumin 4.7 (3.9-5) g/dL Pituitary panel 06/23/19 06/24/19 Range/Units 19:28 05:09 Sodium 140 142 (137-145) mmol/L Potassium 3.7 4.0 (3.6-5.0) mmol/L Chloride 101.1 106.4 (98-107) mmol/L Carbon Dioxide 20 L 22 (22-30) mmol/L BUN 10 10 (7-17) mg/dL Creatinine 0.6 L 0.6 L (0.7-1.2) mg/dL Glucose 100 99 (65-100) mg/dL Calcium 9.9 8.8 (8.4-10.2) mg/dL Adrenal panel 06/23/19 06/24/19 Range/Units 19:28 05:09 Sodium 140 142 (137-145) mmol/L Potassium 3.7 4.0 (3.6-5.0) mmol/L Chloride 101.1 106.4 (98-107) mmol/L Carbon Dioxide 20 L 22 (22-30) mmol/L BUN 10 10 (7-17) mg/dL Creatinine 0.6 L 0.6 L (0.7-1.2) mg/dL Glucose 100 99 (65-100) mg/dL Calcium 9.9 8.8 (8.4-10.2) mg/dL Total Bilirubin 0.40 (0.1-1.2) mg/dL AST 17 (5-40) units/L ALT 13 (7-56) units/L Alkaline Phosphatase 94 (35-129) units/L Total Protein 8.0 (6.3-8.2) g/dL Albumin 4.7 (3.9-5) g/dL - Imaging CT scan - abdomen: report reviewed, image reviewed CT scan - pelvis: report reviewed, image reviewed Assessment and Plan 24 year old female with SBO seen on CT scan that is showing quick clinical signs of resolution. afebrile, and stable. will do small bowel follow through in am. trial clamping of NGT and check residuals. if small bowel follow through shows signs of obstruction will take for diagnostic laparoscopy. if negative may start trial of clear liquids.
[2019-06-24] MEDS: ENOXAPARIN 40 MG/0.4 ML INJ SUB-Q SCH (09:48)
[2019-06-24] MEDS ORDERED: ENOXAPARIN 30 MG/0.3 ML INJ SUB-Q SCH (10:00)
[2019-06-24] MEDS: MORPHINE 2 MG/1 ML INJ IV PRN ×2 (10:05→22:58)
[2019-06-24] MEDS ORDERED: PHENOL 1.4% 177 ML BOTTLE MM PRN (10:43)
--- NOTE | 2019-06-24 11:30 | Progress Note ---
Assessment and Plan Assessment and plan: Patient is a 24 yo woman without chronic medical problems who presented with abd pains/n/v. CT scan shows SBO and GS consulted. * CT abd/pelvis with contrast IMPRESSION: Relatively severe mid abdominal me chanical small bowel obstruction of uncertain etiology. The appendix is not seen but there is no definite inflammatory process identified. SBO: bowel rest, GS follow up, serial imaging N/V: ngt if continues to vomit, treat with IV anti-emetics History Interval history: Patient was seen and examined. Follow-up on current diagnosis SBO, still with n/v. Overnight uneventful as no events directly reported to me. Patient denies any chest pain, shortness breath, or severe headaches. Imaging, nursing note, art, labs and old chart reviewed. Discussed with patient. She wants the NGT out PUI?: No Hospitalist Physical - Physical exam Narrative exam: Gen: WDWN, NAD, Awake, Alert, Orientated HEENT: NCAT, EOMI, PERRL, OP Clear Neck: supple, no adenopathy, no thyromegaly, no JVD CVS/Heart: RRR, normal S1S2, pulses present bilaterally Chest/Lungs: CTA B, Symmetrical chest expansion, good air entry bilaterally GI/Abdomen: soft, NTND, hypoactive bowel sounds, no guarding or rebound /Bladder: no suprapubic tenderness, no CVA or paraspinal tenderness Extermity/Skin: no c/c/e, no obvious rash MSK: FROM x 4 Neuro: CN 2-12 grossly intact, no new focal deficits Psych: calm - Constitutional Vitals: Temp Pulse Resp BP Pulse Ox 98.2 F 81 24 107/57 98 06/24/19 07:16 06/24/19 10:00 06/24/19 10:00 06/24/19 07:16 06/24/19 10:00 Results - Labs CBC & Chem 7: 06/24/19 05:09 06/24/19 05:09 Labs: Laboratory Last Values WBC 6.2 K/mm3 (4.5-11.0) 06/24/19 05:09 RBC 4.37 M/mm3 (3.65-5.03) 06/24/19 05:09 Hgb 12.6 gm/dl (10.1-14.3) 06/24/19 05:09 Hct 38.4 % (30.3-42.9) 06/24/19 05:09 MCV 88 fl (79-97) 06/24/19 05:09 MCH 29 pg (28-32) 06/24/19 05:09 MCHC 33 % (30-34) 06/24/19 05:09 RDW 13.0 % (13.2-15.2) L 06/24/19 05:09 Plt Count 251 K/mm3 (140-440) 06/24/19 05:09 Lymph % (Auto) 29.1 % (13.4-35.0) 06/24/19 05:09 [place] % (Auto) 8.2 % (0.0-7.3) H 06/24/19 05:09 Eos % (Auto) 0.4 % (0.0-4.3) 06/24/19 05:09 Baso % (Auto) 0.4 % (0.0-1.8) 06/24/19 05:09 Lymph # 1.8 K/mm3 (1.2-5.4) 06/24/19 05:09 [place] # 0.5 K/mm3 (0.0-0.8) 06/24/19 05:09 Eos # 0.0 K/mm3 (0.0-0.4) 06/24/19 05:09 Baso # 0.0 K/mm3 (0.0-0.1) 06/24/19 05:09 Seg Neutrophils % 61.9 % (40.0-70.0) 06/24/19 05:09 Seg Neutrophils # 3.8 K/mm3 (1.8-7.7) 06/24/19 05:09 Sodium 142 mmol/L (137-145) 06/24/19 05:09 Potassium 4.0 mmol/L (3.6-5.0) 06/24/19 05:09 Chloride 106.4 mmol/L (98-107) 06/24/19 05:09 Carbon Dioxide 22 mmol/L (22-30) 06/24/19 05:09 Anion Gap 18 mmol/L 06/24/19 05:09 BUN 10 mg/dL (7-17) 06/24/19 05:09 Creatinine 0.6 mg/dL (0.7-1.2) L 06/24/19 05:09 Estimated GFR > 60 ml/min 06/24/19 05:09 BUN/Creatinine Ratio 17 % 06/24/19 05:09 Glucose 99 mg/dL (65-100) 06/24/19 05:09 Lactic Acid 0.90 mmol/L (0.7-2.0) 06/23/19 22:52 Calcium 8.8 mg/dL (8.4-10.2) 06/24/19 05:09 Total Bilirubin 0.40 mg/dL (0.1-1.2) 06/23/19 19:28 AST 17 units/L (5-40) 06/23/19 19:28 ALT 13 units/L (7-56) 06/23/19 19:28 Alkaline Phosphatase 94 units/L (35-129) 06/23/19 19:28 Total Protein 8.0 g/dL (6.3-8.2) 06/23/19 19:28 Albumin 4.7 g/dL (3.9-5) 06/23/19 19:28 Albumin/Globulin Ratio 1.4 % 06/23/19 19:28 HCG, Qual Negative (Negative) 06/23/19 20:40 Urine Color [place] (Yellow) 06/23/19 Unknown Urine Turbidity Slightly-cloudy (Clear) 06/23/19 Unknown Urine pH 5.0 (5.0-7.0) 06/23/19 Unknown Ur Specific [place] 1.035 (1.003-1.030) H 06/23/19 Unknown Urine Protein 100 mg/dl mg/dL (Negative) 06/23/19 Unknown Urine Glucose (UA) Neg mg/dL (Negative) 06/23/19 Unknown Urine Ketones 80 mg/dL (Negative) 06/23/19 Unknown Urine Blood Mod (Negative) 06/23/19 Unknown Urine Nitrite Neg (Negative) 06/23/19 Unknown Urine Bilirubin Sm (Negative) 06/23/19 Unknown Urine Ictotest Negative (Negative) 06/23/19 Unknown Urine Urobilinogen < 2.0 mg/dL (<2.0) 06/23/19 Unknown Ur Leukocyte Esterase Tr (Negative) 06/23/19 Unknown Urine WBC (Auto) 5.0 /HPF (0.0-6.0) 06/23/19 Unknown Urine RBC (Auto) 19.0 /HPF (0.0-6.0) 06/23/19 Unknown U Epithel Cells (Auto) 9.0 /HPF (0-13.0) 06/23/19 Unknown Urine Mucus 3+ /HPF 06/23/19 Unknown [place]/IV: Voiding Method Toilet IV Catheter Type [Left Forearm INT / Saline Lock ] Active Medications - Current Medications Current Medications: Generic Name Dose Route Start Last Admin Trade Name Freq PRN Reason Stop Dose Admin Acetaminophen 650 mg 06/23/19 22:41 Tylenol [place] Q4H PRN Pain MILD(1-3)/Fever >100.5/MILLER Enoxaparin Sodium 40 mg 06/24/19 10:00 06/24/19 09:48 Enoxaparin SUB-Q 40 mg QDAY@1000 LAINE Administration Sodium Chloride 1,000 mls @ 125 mls/hr 06/23/19 22:45 06/24/19 09:47 Nacl 0.9% 1000 Ml IV 125 mls/hr DIRECT LAINE Administration Morphine Sulfate 2 mg 06/23/19 22:41 06/24/19 10:05 Morphine IV 2 mg Q4H PRN Administration Pain, Moderate (4-6) Ondansetron HCl 4 mg 06/23/19 22:41 06/24/19 05:36 Zofran IV 4 mg Q4H PRN Administration Nausea And Vomiting Phenol 1 spray 06/24/19 10:43 Chloraseptic MM PRN PRN Sore Throat Sodium Chloride 10 ml 06/24/19 10:00 06/24/19 09:53 Sodium Chloride Flush Syringe 10 Ml IV 10 ml BID LAINE Administration Sodium Chloride 10 ml 06/23/19 22:41 Sodium Chloride Flush Syringe 10 Ml IV PRN PRN LINE FLUSH
[2019-06-25] MEDS ORDERED: DEXTROSE 50% IN WATER (25GM) 50 ML VIAL IV NR (08:58)
[2019-06-25] MEDS: ENOXAPARIN 40 MG/0.4 ML INJ SUB-Q SCH (11:36)
[2019-06-25] MEDS: MORPHINE 2 MG/1 ML INJ IV PRN ×2 (11:45→21:08)
--- NOTE | 2019-06-25 13:10 | Progress Note ---
Assessment and Plan 24 year old female with partial bowel obstruction. stable and afebrile. Spoke with the patient and her mother who agree to proceed with diagnostic laparoscopy to look for source of obstruction. Pt signed consent. Will take for surgery davonte parnell. Subjective Date of service: 06/25/19 Patient Reports: Positive: other (Pt had more bowel movements and flatus since yesterday. however she had a small bowel series this morning and did not tolerate contrast well. She was able to keep enough down to finisht the study. I spoke with the radiologist who said the contrast went through in about 90 minutes which is normal, but he says some dilated small bowel loops c/w partial obstruction. ) Objective Vital Signs - 12hr 06/25/19 06/25/19 06/25/19 05:47 07:43 10:00 Temperature 99.5 F 99.2 F Pulse Rate 90 82 Respiratory 18 18 Rate Blood Pressure 120/70 138/85 O2 Sat by Pulse 100 99 98 Oximetry - General physical appearance no distress, no pain - Respiratory normal expansion, normal respiratory effort - Abdomen soft, not tender, distended, other (NGT with bilious out put, about 700cc since yesterday) - Labs 06/24/19 05:09 06/24/19 05:09
--- NOTE | 2019-06-25 13:17 | Anesthesia Consultation ---
Anesthesia Consult and Med Hx Date of service: 06/25/19 - Airway Anesthetic Teeth Evaluation: Good ROM Head & Neck: Adequate Mental/Hyoid Distance: Adequate Mallampati Class: Class II Intubation Access Assessment: Probably Good - Pre-Operative Health Status ASA Pre-Surgery Classification: ASA2, Emergency Proposed Anesthetic Plan: General - Pulmonary Hx Asthma: No COPD: No Hx Pneumonia: No - Endocrine Hx End Stage Renal Disease: No - Other Systems Hx Substance Use: Yes (marijuana every other day) - Additional Comments Anesthesia Medical History Comments: [place] tube ia in place. No revious medical or surgical history. Consent is signed
--- NOTE | 2019-06-25 13:18 | Anesthesia Day of Surgery ---
Anesthesia Day of Surgery - Day of Surgery Patient Examined: Yes Patient H&P Reviewed: Yes Patient is NPO: Yes
[2019-06-25] MEDS ORDERED: LACTATED RINGERS 1,000 ML ONE ×2 (13:39→17:18)
[2019-06-25] MEDS ORDERED: BUPIVACAINE-EPINEPHRINE/PF 0.5%-1:200,000 (30 ML) VIAL INFILTRATI ONE ×2 (13:42→15:16)
[2019-06-25] MEDS ORDERED: LIDOCAINE (1%) 10 MG/1 ML VIAL 20 ML MDV ONE (13:42)
[2019-06-25] MEDS: LACTATED RINGERS 1,000 ML IV SCH (13:50)
--- NOTE | 2019-06-25 13:55 | Progress Note ---
Assessment and Plan Assessment and plan: Patient is a 24 yo woman without chronic medical problems who presented with abd pains/n/v. CT scan shows SBO and GS consulted. * CT abd/pelvis with contrast IMPRESSION: Relatively severe mid abdominal me chanical small bowel obstruction of uncertain etiology. The appendix is not seen but there is no definite inflammatory process identified. SBO: bowel rest, GS follow up, serial imaging N/V: ngt if continues to vomit, treat with IV anti-emetics 06/25/19: Surgery planned, I was in the room when GS, Dr. Kaye, was speaking with patient. History Interval history: Patient was seen and examined. Follow-up on current diagnosis SBO, still with n/v. Overnight uneventful as no events directly reported to me. Patient denies any chest pain, shortness breath, or severe headaches. Imaging, nursing note, chart, labs and old chart reviewed. Discussed with patient. She wants the NGT out PUI?: No Hospitalist Physical - Physical exam Narrative exam: Gen: WDWN, NAD, Awake, Alert, Orientated HEENT: NCAT, EOMI, PERRL, OP Clear Neck: supple, no adenopathy, no thyromegaly, no JVD CVS/Heart: RRR, normal S1S2, pulses present bilaterally Chest/Lungs: CTA B, Symmetrical chest expansion, good air entry bilaterally GI/Abdomen: soft, NTND, hypoactive bowel sounds, no guarding or rebound /Bladder: no suprapubic tenderness, no CVA or paraspinal tenderness Extermity/Skin: no c/c/e, no obvious rash MSK: FROM x 4 Neuro: CN 2-12 grossly intact, no new focal deficits Psych: calm - Constitutional Vitals: Temp Pulse Resp BP Pulse Ox 99.2 F 82 18 138/85 98 06/25/19 07:43 06/25/19 07:43 06/25/19 07:43 06/25/19 07:43 06/25/19 10:00 Results - Labs CBC & Chem 7: 06/24/19 05:09 06/24/19 05:09 Labs: Laboratory Last Values WBC 6.2 K/mm3 (4.5-11.0) 06/24/19 05:09 RBC 4.37 M/mm3 (3.65-5.03) 06/24/19 05:09 Hgb 12.6 gm/dl (10.1-14.3) 06/24/19 05:09 Hct 38.4 % (30.3-42.9) 06/24/19 05:09 MCV 88 fl (79-97) 06/24/19 05:09 MCH 29 pg (28-32) 06/24/19 05:09 MCHC 33 % (30-34) 06/24/19 05:09 RDW 13.0 % (13.2-15.2) L 06/24/19 05:09 Plt Count 251 K/mm3 (140-440) 06/24/19 05:09 Lymph % (Auto) 29.1 % (13.4-35.0) 06/24/19 05:09 [place] % (Auto) 8.2 % (0.0-7.3) H 06/24/19 05:09 Eos % (Auto) 0.4 % (0.0-4.3) 06/24/19 05:09 Baso % (Auto) 0.4 % (0.0-1.8) 06/24/19 05:09 Lymph # 1.8 K/mm3 (1.2-5.4) 06/24/19 05:09 [place] # 0.5 K/mm3 (0.0-0.8) 06/24/19 05:09 Eos # 0.0 K/mm3 (0.0-0.4) 06/24/19 05:09 Baso # 0.0 K/mm3 (0.0-0.1) 06/24/19 05:09 Seg Neutrophils % 61.9 % (40.0-70.0) 06/24/19 05:09 Seg Neutrophils # 3.8 K/mm3 (1.8-7.7) 06/24/19 05:09 Sodium 142 mmol/L (137-145) 06/24/19 05:09 Potassium 4.0 mmol/L (3.6-5.0) 06/24/19 05:09 Chloride 106.4 mmol/L (98-107) 06/24/19 05:09 Carbon Dioxide 22 mmol/L (22-30) 06/24/19 05:09 Anion Gap 18 mmol/L 06/24/19 05:09 BUN 10 mg/dL (7-17) 06/24/19 05:09 Creatinine 0.6 mg/dL (0.7-1.2) L 06/24/19 05:09 Estimated GFR > 60 ml/min 06/24/19 05:09 BUN/Creatinine Ratio 17 % 06/24/19 05:09 Glucose 99 mg/dL (65-100) 06/24/19 05:09 POC Glucose 106 (70-105) H 06/25/19 11:39 Lactic Acid 0.90 mmol/L (0.7-2.0) 06/23/19 22:52 Calcium 8.8 mg/dL (8.4-10.2) 06/24/19 05:09 Total Bilirubin 0.40 mg/dL (0.1-1.2) 06/23/19 19:28 AST 17 units/L (5-40) 06/23/19 19:28 ALT 13 units/L (7-56) 06/23/19 19:28 Alkaline Phosphatase 94 units/L (35-129) 06/23/19 19:28 Total Protein 8.0 g/dL (6.3-8.2) 06/23/19 19:28 Albumin 4.7 g/dL (3.9-5) 06/23/19 19:28 Albumin/Globulin Ratio 1.4 % 06/23/19 19:28 HCG, Qual Negative (Negative) 06/23/19 20:40 Urine Color [place] (Yellow) 06/23/19 Unknown Urine Turbidity Slightly-cloudy (Clear) 06/23/19 Unknown Urine pH 5.0 (5.0-7.0) 06/23/19 Unknown Ur Specific [place] 1.035 (1.003-1.030) H 06/23/19 Unknown Urine Protein 100 mg/dl mg/dL (Negative) 06/23/19 Unknown Urine Glucose (UA) Neg mg/dL (Negative) 06/23/19 Unknown Urine Ketones 80 mg/dL (Negative) 06/23/19 Unknown Urine Blood Mod (Negative) 06/23/19 Unknown Urine Nitrite Neg (Negative) 06/23/19 Unknown Urine Bilirubin Sm (Negative) 06/23/19 Unknown Urine Ictotest Negative (Negative) 06/23/19 Unknown Urine Urobilinogen < 2.0 mg/dL (<2.0) 06/23/19 Unknown Ur Leukocyte Esterase Tr (Negative) 06/23/19 Unknown Urine WBC (Auto) 5.0 /HPF (0.0-6.0) 06/23/19 Unknown Urine RBC (Auto) 19.0 /HPF (0.0-6.0) 06/23/19 Unknown U Epithel Cells (Auto) 9.0 /HPF (0-13.0) 06/23/19 Unknown Urine Mucus 3+ /HPF 06/23/19 Unknown Microbiology: Microbiology 06/24/19 01:50 Nares - Right MRSA Culture - Preliminary [place]/IV: Voiding Method Toilet IV Catheter Type [Left Forearm INT / Saline Lock ] Active Medications - Current Medications Current Medications: Generic Name Dose Route Start Last Admin Trade Name Freq PRN Reason Stop Dose Admin Acetaminophen 650 mg 06/23/19 22:41 Tylenol [place] Q4H PRN Pain MILD(1-3)/Fever >100.5/MILLER Enoxaparin Sodium 40 mg 06/24/19 10:00 06/25/19 11:36 Enoxaparin SUB-Q 40 mg QDAY@1000 LAINE Administration Sodium Chloride 1,000 mls @ 125 mls/hr 06/23/19 22:45 06/24/19 18:00 Nacl 0.9% 1000 Ml IV 125 mls/hr DIRECT LAINE Administration Metronidazole 500 mg in 100 mls @ 200 mls/hr 06/25/19 14:00 Flagyl 500 Mg/100 Ml IV 06/25/19 23:59 PREOP NR Protocol Cefazolin Sodium 2 gm in 20 mls @ 80 mls/hr 06/25/19 14:00 Ancef/Sterile Water 2 Gm/20 Ml IV 06/25/19 23:59 PREOP NR Lactated Ringer's 1,000 mls @ 75 mls/hr 06/25/19 14:00 Lactated Ringers IV DIRECT LAINE Morphine Sulfate 2 mg 06/23/19 22:41 06/25/19 11:45 Morphine IV 2 mg Q4H PRN Administration Pain, Moderate (4-6) Ondansetron HCl 4 mg 06/23/19 22:41 06/24/19 17:59 Zofran IV 4 mg Q4H PRN Administration Nausea And Vomiting Phenol 1 spray 06/24/19 10:43 06/24/19 21:47 Chloraseptic MM 1 spray PRN PRN Administration Sore Throat Sodium Chloride 10 ml 06/24/19 10:00 06/25/19 11:36 Sodium Chloride Flush Syringe 10 Ml IV 10 ml BID LAINE Administration Sodium Chloride 10 ml 06/23/19 22:41 Sodium Chloride Flush Syringe 10 Ml IV PRN PRN LINE FLUSH
--- NOTE | 2019-06-25 13:58 | Fluoroscopy Report ---
SMALL BOWEL FOLLOW-THROUGH HISTORY: small bowel obstruction. TECHNIQUE: Single contrast Gastrografin technique utilized to evaluate the small bowel. FINDINGS: Transit time through the small bowel is within normal limits at approximately 60 minutes. T here are however multiple mildly dilated loops of small bowel throughout the central abdomen measurin g up to 4 cm in diameter. The transition point appears to be within the pelvis in the right lower barbara drant. The obstructing lesion is not clearly demonstrated on Gastrografin exam. There is normal filli ng of the cecum and visualized colon. The appendix is not identified. IMPRESSION: Transit time through the small bowel is within normal limits at 60 minutes however there are multiple mildly dilated loops of small bowel suggesting a low-grade partial small bowel obstruct ion. These findings were discussed with Dr. Kaye at 1200 hours. FLUOROSCOPIC TIME: None needed NUMBER OF FLUOROSCOPIC IMAGES: 0 Signer Name: Oral Segundo Jr, MD Signed: 06/25/2019 1:54 PM Workstation Name: [email or web address]
[2019-06-25] MEDS ORDERED: LIDOCAINE MPF (2%) 20 MG/1 ML VIAL 5 ML ONE (14:00)
[2019-06-25] MEDS ORDERED: ceFAZolin/Water 2 GM/20 ML 2 GM/20 ML SYRINGE IV NR (14:00)
[2019-06-25] MEDS ORDERED: metroNIDAZOLE/NS 500 MG/100 ML 500 MG/100 ML BAG IV NR (14:00)
[2019-06-25] MEDS ORDERED: propofoL 200 MG/20 ML VIAL IV ONE (14:01)
[2019-06-25] MEDS ORDERED: SUCCINYLCHOLINE CHLORIDE 200 MG/10 ML INJ MDV ONE (14:01)
[2019-06-25] MEDS ORDERED: HYDROmorphone 1 MG/1 ML INJ ONE (14:01)
[2019-06-25] MEDS ORDERED: ROCURONIUM 50 MG/5 ML INJ IV ONE (14:02)
[2019-06-25] MEDS ORDERED: LIDOCAINE (1%) 10 MG/1 ML VIAL 20 ML MDV INFILTRATI ONE (15:17)
[2019-06-25] MEDS ORDERED: SODIUM CHLORIDE 0.9% IRR 1,500 ML BOTTLE IR ONE (15:17)
[2019-06-25] MEDS ORDERED: ONDANSETRON 4 MG/2 ML INJ ONE (16:48)
[2019-06-25] MEDS ORDERED: GLYCOPYRROLATE 0.4 MG/2 ML INJ ONE (16:48)
[2019-06-25] MEDS ORDERED: KETOROLAC 30 MG/1 ML INJ ONE ×2 (16:48)
[2019-06-25] MEDS ORDERED: NEOSTIGMINE 10MG/10 ML INJ MDV ONE (16:48)
[2019-06-25] MEDS ORDERED: HYDROmorphone 1 MG/1 ML INJ IV PRN (17:12)
[2019-06-25] MEDS ORDERED: ONDANSETRON 4 MG/2 ML INJ IV PRN (17:12)
--- NOTE | 2019-06-25 17:30 | Operative Report ---
Operative Report Operative Report: Date: June 25, 2019 Surgeon: Vanessa Kaye MD [employer] Attendant surgeon: Jamila Juarez DO Procedure: Diagnostic laparoscopy, ileocecectomy with primary anastomosis Anesthesia: General with endotracheal tube intubation Preop diagnosis: Small bowel obstruction Postop diagnosis: Small bowel obstruction due to mass at terminal ileum Indication: Patient is a 24-year-old female with no previous surgical history presented to the emergency room with several days of worsening abdominal pain nausea vomiting. CAT scan showed mechanical small bowel obstruction. She did well after NG tube decompression, was passing flatus and having bowel movements. She had a small bowel series the following morning after admission which showed passage of contrast to the colon within 90 minutes, however persistently dilated small bowel was concerning for partial small bowel obstruction. It was decided to take her to the operating room for diagnostic laparoscopy for which he signed informed consent and expressed understanding of the risk and benefits. Details of procedure: Patient was brought into the OR suite laid in supine position. Bilateral lower extremity SCDs were placed. General anesthesia was induced via successful endotracheal tube intubation. A Devries catheter was inserted under sterile conditions. Patient's abdomen was prepped and draped in sterile fashion with her arms at her sides. After timeout, a Veress needle was inserted via the umbilicus to insufflate the abdomen to a pressure of 15 mmHg. After which a 5 mm trocar using Optiview technique was used to insert into the abdominal cavity just superior to the umbilicus. There was noted to be no gross injury to any intra-abdominal structures. It was immediately noticed that the overwhelming majority of her small bowel was grossly distended. 3 working trochars were placed under direct visualization. 5 mm in the right upper quadrant right midabdomen and left upper quadrant. We decided to run the small bowel starting at the ligament of Treitz distally until we got to the point of transition. There was an obvious mass at the distal ileum that was identified close to the cecum. It was decided to mobilize the cecum laparoscopically and exteriorized the cecum and terminal ileum to transect the lesion and perform primary anastomosis. An additional trocar was placed in the suprapubic area. The peritoneal attachments lateral to the cecum were taken down with a LigaSure device to medially mobilize the cecum. Once this was complete a vertical incision was made inferior to the umbilicus to the suprapubic area. The cecum appendix terminal ileum including the mass were easily exteriorized through this incision. Using TONI staplers the distal ileum was transected approximately 6 cm proximal to the mass and the cecum was transected in similar fashion. Great care was made to preserve the vascular pedicle to the cecum. The mesentery was taken with the LigaSure device, and the specimen was sent off the table to be sent to pathology. A [id number] staple ileocecectomy anastomosis was performed with TONI staplers followed by a TA stapler. Hemostasis was achieved at the staple line with several interrupted silk sutures. The mesenteric defect was closed with a running Vicryl suture. The abdomen was irrigated with warm saline. The trochars were removed, the midline fascia was closed with a 0 PDS. All skin incisions were closed with 4-0 Monocryl followed by Dermabond. Patient was awoken, extubated, and taken to recovery in stable condition. All counts were correct. Specimen: terminal ileum and cecum Complications: None immediate EBL: Less than 10 mL
--- NOTE | 2019-06-25 18:38 | Post Anesthesia Evaluation ---
- Post Anesthesia Evaluation Patient Participated: Yes Airway Patent: Yes Stable Respiratory Function: Yes Nausea/Vomiting: No Temp > 96.8F: Yes Pain Manageable: Yes Adequeate Hydration: Yes Anesthesia Complications: No Block Receding Appropriately: Not Applicable Patient on Ventilator: No
[2019-06-25] MEDS: KETOROLAC 30 MG/1 ML INJ IV SCH (19:27)
[2019-06-25] MEDS: metroNIDAZOLE/NS 500 MG/100 ML 500 MG/100 ML BAG IV SCH (21:08)
[2019-06-25] MEDS: ceFAZolin/NS 1 GM/50 ML 1 GM/50 ML BAG IV SCH (22:29)
[2019-06-26] MEDS: LACTATED RINGERS 1,000 ML IV SCH ×2 (00:10→14:30)
[2019-06-26] MEDS: KETOROLAC 30 MG/1 ML INJ IV SCH ×4 (00:11→17:16)
[2019-06-26] MEDS: MORPHINE 2 MG/1 ML INJ IV PRN (03:58)
[2019-06-26 04:28] LABS: Hematocrit 34.5 % (30.3-42.9); Hemoglobin 11.3 gm/dl (10.1-14.3); Mean Corpuscular HGB Conc 33 % (30-34); Mean Corpuscular Volume 88 fl (79-97); Platelet Count 209 K/mm3 (140-440); Red Blood Count 3.91 M/mm3 (3.65-5.03); Red Cell Distribution Width 13.3 % (13.2-15.2)
[2019-06-26 04:41] LABS: BUN/Creatinine Ratio 11; Blood Urea Nitrogen 8 mg/dL (7-17); Calcium 8.3 mg/dL (8.4-10.2); Hemolysis Index 4
[2019-06-26] MEDS: metroNIDAZOLE/NS 500 MG/100 ML 500 MG/100 ML BAG IV SCH ×2 (04:59→14:29)
[2019-06-26] MEDS: ceFAZolin/NS 1 GM/50 ML 1 GM/50 ML BAG IV SCH ×2 (06:30→13:33)
--- NOTE | 2019-06-26 11:06 | Progress Note ---
Assessment and Plan POD#1 s/p diagnostic lap and ileo-cecectomy for SBO caused by mass in distal ileum. stable, afebrile. post op ileus, will await return of bowel function. Encouraged ambulation and minimize narcotic use if possible. Subjective Date of service: 06/26/19 Patient Reports: Positive: feels better, no flatus (no acute events overnight. pt complains of post surgical pain, pre-p pain is better) Objective Vital Signs - 12hr 06/25/19 06/26/19 06/26/19 23:55 03:26 08:27 Temperature 98.9 F 100.0 F H 98.5 F Pulse Rate 81 94 H 79 Respiratory 18 18 18 Rate Blood Pressure 140/86 130/94 125/81 O2 Sat by Pulse 100 99 95 Oximetry - General physical appearance well developed, well nourished, no distress - Respiratory normal expansion, normal respiratory effort - Abdomen soft, other (inisions c/d/i, appropriatley tender to palpation, NGT with ~200cc since yesterday) - Labs 06/26/19 03:44 06/26/19 03:44 Diabetes panel 06/26/19 Range/Units 03:44 Sodium 145 (137-145) mmol/L Potassium 4.0 (3.6-5.0) mmol/L Chloride 109.4 H (98-107) mmol/L Carbon Dioxide 22 (22-30) mmol/L BUN 8 (7-17) mg/dL Creatinine 0.7 (0.7-1.2) mg/dL Glucose 106 H (65-100) mg/dL Calcium 8.3 L (8.4-10.2) mg/dL Calcium panel 06/26/19 Range/Units 03:44 Calcium 8.3 L (8.4-10.2) mg/dL Pituitary panel 06/26/19 Range/Units 03:44 Sodium 145 (137-145) mmol/L Potassium 4.0 (3.6-5.0) mmol/L Chloride 109.4 H (98-107) mmol/L Carbon Dioxide 22 (22-30) mmol/L BUN 8 (7-17) mg/dL Creatinine 0.7 (0.7-1.2) mg/dL Glucose 106 H (65-100) mg/dL Calcium 8.3 L (8.4-10.2) mg/dL Adrenal panel 06/26/19 Range/Units 03:44 Sodium 145 (137-145) mmol/L Potassium 4.0 (3.6-5.0) mmol/L Chloride 109.4 H (98-107) mmol/L Carbon Dioxide 22 (22-30) mmol/L BUN 8 (7-17) mg/dL Creatinine 0.7 (0.7-1.2) mg/dL Glucose 106 H (65-100) mg/dL Calcium 8.3 L (8.4-10.2) mg/dL
--- NOTE | 2019-06-26 12:39 | Progress Note ---
Assessment and Plan SBO - s/p diagnostic lap and ileo-cecectomy on 06/24 for SBO caused by mass in distal ileum. Wait for pathology report. post- op ileus, -Continue n.p.o., IV fluid - will await return of bowel function. Encouraged ambulation and minimize narcotic use if possible. -Continue NGT Distal ileum mass -Status post resection, await for pathology report Nausea vomiting: Due to SBO -Patient on NGT suction, general surgery following DVT prophylaxis, SCD 06/25: POD #1. Keep n.p.o., continue IV fluids, encourage ambulation. Wait for pathology findings Brief history: Patient is a 24 yo woman without chronic medical problems who presented with abd pains/n/v. CT scan shows SBO and GS consulted. CT abd/pelvis with contrast IMPRESSION: Relatively severe mid abdominal mechanical small bowel obstruction of uncertain etiology. The appendix is not seen but there is no definite inflammatory process identified. Hospitalist physical: GENERAL: well-developed and well-nourished -[place] appeared to be in no discomfort. HEENT: Normocephalic. Atraumatic. No conjunctival congestion or icterus. Patient has moist mucous membranes. NECK: Supple. Trachea midline. CHEST/LUNGS: Clear to auscultated bilaterally, breathing nonlabored. No wheezes crackles or rhonchi. HEART/CARDIOVASCULAR: Regular in rate and rhythm. S1 and S2 positive. ABDOMEN: Abdomen is soft, mild tender, surgical dressing on place. Patient has hypoactive bowel sounds. SKIN: There is no rash. Warm and dry. NEURO: No focal motor deficit. Follows command. MUSCULOSKELETAL: No joint effusion or tenderness. EXTRIMITY: No edema, no cyanosis or clubbing. PSYCH: Cooperative. Subjective Date of service: 06/26/19 Interval history: Patient seen and examined. Medical records and medication list reviewed. No acute event overnight noted by the RN. Patient continued to complains of abdominal pain and dry mouth. Discussed plan of care at bedside with patient. PUI?: No Objective - Constitutional Vitals: Vital Signs - 12hr 06/26/19 06/26/19 03:26 08:27 Temperature 100.0 F H 98.5 F Pulse Rate 94 H 79 Respiratory 18 18 Rate Blood Pressure 130/94 125/81 O2 Sat by Pulse 99 95 Oximetry - Labs CBC & Chem 7: 06/26/19 03:44 06/26/19 03:44 Labs: Abnormal lab results 06/25/19 06/26/19 Range/Units 09:07 03:44 Chloride 109.4 H (98-107) mmol/L Glucose 106 H (65-100) mg/dL POC Glucose 170 H (70-105) Calcium 8.3 L (8.4-10.2) mg/dL
[2019-06-27] MEDS: KETOROLAC 30 MG/1 ML INJ IV SCH ×3 (02:14→12:33)
[2019-06-27 04:14] VITALS: BP 142/90
--- NOTE | 2019-06-27 10:45 | Progress Note ---
Assessment and Plan POd#2 s/p ileocectomy for mass on small bowel causing bowel obstruction .Path resulted as endometriosis. clinical signs of resolving post op ileus. Stable, afebrile NGT removed will start on clear liquids will advance for dinner if tolerates and can be discharged tomorrow if does well informed pt of her pathology. She will need to establish care with a gynelcologist to monitor her endometriosis. Subjective Date of service: 06/27/19 Patient Reports: Positive: bowel movement (no acute events overnight. pt says she has had multiple bowel movements. no flatus. she complains of wanting the NGT out) Objective Vital Signs - 12hr 06/27/19 06/27/19 00:40 04:11 Temperature 99.1 F 99.1 F Pulse Rate 70 72 Blood Pressure 136/94 142/90 O2 Sat by Pulse 100 99 Oximetry - General physical appearance well developed, no distress, no pain - Respiratory normal expansion, normal respiratory effort - Abdomen other (incisions c/d/i, distended, soft, appropriatly tender to palpation) - Labs 06/26/19 03:44 06/26/19 03:44
--- NOTE | 2019-06-27 13:34 | Progress Note ---
Assessment and Plan SBO - s/p diagnostic lap and ileo-cecectomy on 06/24 for SBO caused by mass in distal ileum. Wait for pathology report. post- op ileus, improving -Continue IV fluid -Had BM today, tolerating clear liquid diet. Encouraged ambulation and minimize narcotic use if possible. -Off NGT suction Distal ileum mass -Status post resection, await for pathology report Nausea vomiting: Due to SBO -Patient on NGT suction, general surgery following DVT prophylaxis, SCD 06/25: POD #1. Keep n.p.o., continue IV fluids, encourage ambulation. Wait for pathology findings 06/26: POD #2. Had a BM today, started on clear liquid to full liquid diet. Pathology report still pending. Plan to DC soon when clears by surgery. Brief history: Patient is a 24 yo woman without chronic medical problems who presented with abd pains/n/v. CT scan shows SBO and GS consulted. CT abd/pelvis with contrast IMPRESSION: Relatively severe mid abdominal mechanical small bowel obstruction of uncertain etiology. The appendix is not se en but there is no definite inflammatory process identified. Hospitalist physical: GENERAL: well-developed and well-nourished -[place] appeared to be in no discomfort. HEENT: Normocephalic. Atraumatic. No conjunctival congestion or icterus. Patient has moist mucous membranes. NECK: Supple. Trachea midline. CHEST/LUNGS: Clear to auscultated bilaterally, breathing nonlabored. No wheezes crackles or rhonchi. HEART/CARDIOVASCULAR: Regular in rate and rhythm. S1 and S2 positive. ABDOMEN: Abdomen is soft, mild tender, surgical dressing on place. Patient has hypoactive bowel sounds. SKIN: There is no rash. Warm and dry. NEURO: No focal motor deficit. Follows command. MUSCULOSKELETAL: No joint effusion or tenderness. EXTRIMITY: No edema, no cyanosis or clubbing. PSYCH: Cooperative. Subjective Date of service: 06/27/19 Interval history: Patient seen and examined. Medical records and medication list reviewed. No acute event overnight noted by the RN. Patient patient states that her abdominal pain has much improved Had bowel movement today, started on clear liquid diet Discussed plan of care at bedside with patient. PUI?: No Objective - Constitutional Vitals: Vital Signs - 12hr 06/27/19 04:11 Temperature 99.1 F Pulse Rate 72 Blood Pressure 142/90 O2 Sat by Pulse 99 Oximetry - Labs CBC & Chem 7: 06/26/19 03:44 06/26/19 03:44
--- NOTE | 2019-06-27 15:25 | Event Note ---
Date: 06/27/19 Went to see patient for the second time today to give her pathology report that she asked for and see if she was tolerating diet, as her nurse called me and said that the patient really wanted to go home. I told her i would like to see if she could at least tolerate full liquids for dinner since her abdomen was distended this morning, she was unsure if she passed flatus although she acknowledged passing stool, and received her first PO trial this morning after her NGT was removed. When i arrived to her room, i was informed she left AMA.
--- NOTE | 2019-06-29 10:19 | Discharge Summary ---
Providers - Providers Date of Admission: 06/23/19 22:30 Date of discharge: 06/27/19 Attending physician: SALMA HOROWITZ 06/23/19 22:19 Consult to Physician [CONS] Stat Comment: MICHELL Church spoke with Dr. Kaye @ [id number] Consulting Provider: KAYKAY KAYE Physician Instructions: NG Tube insertion; admit by Hospitalist Reason For Exam: Small bowel obstruction Primary care physician: INSULATION BOARD CALENDER OPERATOR Hospitalization Condition: Stable Hospital course: Patient is a 24 yo woman without chronic medical problems who presented with abd pains/n/v. CT scan shows SBO and GS consulted. She was evaluated by general surgery and status post Diagnostic laparoscopy, ileocecectomy with primary anastomosis. She noted to have be small bowel obstruction due to mass in the distal ileum which was resected during the surgery. She was kept n.p.o. after the surgical procedure and was started on clear liquid diet from today. Patient stated that she had a bowel movement today and abdominal exam showed hypoactive bowel sound. Patient wanted to leave the hospital but she was told that she is not stable enough to go home and need to probably wait until the pathology reports comes back. Patient refused to do so and left AMA. Radiological study: CT abd/pelvis with contrast IMPRESSION: Relatively severe mid abdominal mechanical small bowel obstruction of uncertain etiology. The appendix is not seen but there is no definite inflammatory process identified. Discharge diagnosis and management: SBO - s/p diagnostic lap and ileo-cecectomy on 06/24 for SBO caused by mass in distal ileum. Wait for pathology report. post- op ileus, improving -Continue IV fluid -Had BM today, tolerating clear liquid diet. Encouraged ambulation and minimize narcotic use if possible. -Off NGT suction Distal ileum mass -Status post resection, await for pathology report Nausea vomiting: Due to SBO -Patient on NGT suction, general surgery following DVT prophylaxis, SCD 06/25: POD #1. Keep n.p.o., continue IV fluids, encourage ambulation. Wait for pathology findings 06/26: POD #2. Had a BM today, started on clear liquid to full liquid diet. Pathology report still pending. Plan to DC soon when clears by surgery. Patient decided leave AMA. Disposition: DC- LEFT AGAINST MED ADVICE Core Measure Documentation - Palliative Care Palliative Care/ Comfort Measures: Not Applicable - Core Measures Any of the following diagnoses?: none Exam - Constitutional Vitals: Temp Pulse Resp BP Pulse Ox 99.1 F 72 18 142/90 99 06/27/19 04:11 06/27/19 04:11 06/26/19 18:16 06/27/19 04:11 06/27/19 04:11 Plan Follow up with: PRIMARY CARE, [Primary Care Provider] - 3-5 Days Forms: AMA Form Prescriptions: oxyCODONE /ACETAMINOPHEN [Percocet 5/325] 1 tab PO Q4HR PRN #20 tab PRN Reason: Pain , Severe (7-10)
== END 2019-06-27 14:54 | disposition left against medical advice (07) | DRG 331 ==
LOC: ED 19:03 → 4A 22:30
PROVIDERS: ADMIT Internal Medicine; ATTEND Internal Medicine
PROC: 0DBH4ZZ Excision of Cecum, Percutaneous Endoscopic Approach (ICD-10-PCS; principal; 2019-06-25)
DX: K56.690 Other partial intestinal obstruction (principal); D13.39 Benign neoplasm of other parts of small intestine; Z82.49 Family history of ischemic heart disease and other diseases of the circulatory system
CPT/HCPCS: 36415; 74018; 74177; 74248; 80048; 80053; 81001; 82140; 82962; 84703; 85025; 85027; 87116; 88307; G0378; J0330; J0690; J1170; J1650; J1885; J2060; J2270; J2405; J2704; J2710; J7030; J7120; Q9963; Q9967

== ENCOUNTER 2019-09-22 16:49 | Emergency (ER) | payer MEDICAID, OTHER ==
--- NOTE | 2019-09-22 18:02 | Event Note ---
ED Screening Note Date of service: 09/22/19 (') Time: 18:01 ED Screening Note: Patient 24-year-old -Sudanese female with a history of endometriosis status post small bowel obstruction June 2019. Patient had partial bowel resection for same. Presents for pain today with nausea vomiting abdominal pain and diarrhea last p.o. intake was 2 hours ago with nausea vomiting and diarrhea. Symptoms are exacerbated by p.o. intake. Symptoms are relieved by nothing tried. This initial assessment/diagnostic orders/clinical plan/treatment(s) is/are subject to change based on patients health status, clinical progression and re- assessment by fellow clinical providers in the ED. Further treatment and workup at subsequent clinical providers discretion. Patient/guardian urged not to elope from the ED as their condition may be serious if not clinically assessed and managed. Initial orders include:
[2019-09-22 18:30] LABS: Basophils % (Auto) 0.3 % (0.0-1.8); Eosinophils % (Auto) 0.2 % (0.0-4.3); Hematocrit 36.5 % (30.3-42.9); Hemoglobin 11.9 gm/dl (10.1-14.3); Lymphocytes # (Auto) 1.4 K/mm3 (1.2-5.4); Lymphocytes % (Auto) 21.9 % (13.4-35.0); Mean Corpuscular HGB Conc 33 % (30-34); Mean Corpuscular Volume 89 fl (79-97); Monocytes # (Auto) 0.2 K/mm3 (0.0-0.8); Monocytes % (Auto) 3.4 % (0.0-7.3); Platelet Count 209 K/mm3 (140-440); Red Blood Count 4.11 M/mm3 (3.65-5.03); Red Cell Distribution Width 13.6 % (13.2-15.2)
[2019-09-22 18:38] LABS: Alanine Aminotransferase 48 units/L (7-56); Albumin 4.6 g/dL (3.9-5); BUN/Creatinine Ratio 17; Blood Urea Nitrogen 12 mg/dL (7-17); Calcium 9.6 mg/dL (8.4-10.2); Hemolysis Index 5
[2019-09-22] MEDS ORDERED: MORPHINE 2 MG/1 ML INJ IV ONE (20:38)
[2019-09-22] MEDS ORDERED: ONDANSETRON 4 MG/2 ML INJ IV ONE (20:38)
[2019-09-22] MEDS ORDERED: SODIUM CHLORIDE 0.9% 1000 ML 1,000 ML IV ONE (20:38)
--- NOTE | 2019-09-22 20:40 | Emergency Department Report ---
ED Abdominal Pain HPI - General Chief Complaint: Abdominal Pain Stated Complaint: ABD PAIN Time Seen by Provider: 09/22/19 20:34 Source: patient Mode of arrival: Ambulatory Limitations: No Limitations - History of Present Illness Initial Comments: Patient 24-year-old -Malaysian female with a history of endometriosis and status post small bowel obstruction June 2019. Patient had partial bowel resection for same. Presents for pain today with nausea vomiting , abdominal pain 5/10 exacerbated by po intake. Symptoms are relieved by nothing tried. There has been no fever. LMP 2 days ago,. - Related Data Previous Rx's Medication Instructions Recorded Last Taken Type oxyCODONE /ACETAMINOPHEN [Percocet 1 tab PO Q4HR PRN #20 tab 06/27/19 Unknown Rx 5/325] Dicyclomine [Bentyl] 10 mg PO QID PRN #30 capsule 09/22/19 Unknown Rx Ondansetron [Zofran Odt] 4 mg PO Q8HR PRN #12 tab.rapdis 09/22/19 Unknown Rx traMADoL [Ultram] 50 mg PO Q6HR PRN #12 tablet 09/22/19 Unknown Rx Allergies Allergy/AdvReac Type Severity Reaction Status Date / Time No Known Allergies Allergy Verified 09/21/18 02:25 ED Review of Systems ROS: Stated complaint: ABD PAIN Other details as noted in HPI Constitutional: denies: chills, fever Eyes: denies: eye pain, eye discharge, vision change ENT: denies: ear pain, throat pain Respiratory: denies: cough, shortness of breath, wheezing Cardiovascular: denies: chest pain, palpitations Endocrine: no symptoms reported Gastrointestinal: abdominal pain, nausea, vomiting, constipation. denies: diarrhea, melena Genitourinary: denies: urgency, dysuria, frequency, hematuria, discharge Musculoskeletal: as per HPI Skin: denies: rash, lesions Neurological: denies: headache, weakness, paresthesias Psychiatric: denies: anxiety, depression Hematological/Lymphatic: denies: easy bleeding, easy bruising ED Past Medical Hx - Past Medical History Previous Medical History?: Yes Hx Congestive Heart Failure: No Hx Diabetes: No Hx Asthma: No Hx COPD: No Additional medical history: Endometriosis - Surgical History Past Surgical History?: Yes Hx Appendectomy: Yes () - Social History Smoking Status: Never Smoker Substance Use Type: Alcohol - Medications Home Medications: Home Medications Medication Instructions Recorded Confirmed Last Taken Type oxyCODONE /ACETAMINOPHEN [Percocet 1 tab PO Q4HR PRN #20 tab 06/27/19 Unknown Rx 5/325] Dicyclomine [Bentyl] 10 mg PO QID PRN #30 capsule 09/22/19 Unknown Rx Ondansetron [Zofran Odt] 4 mg PO Q8HR PRN #12 tab.rapdis 09/22/19 Unknown Rx traMADoL [Ultram] 50 mg PO Q6HR PRN #12 tablet 09/22/19 Unknown Rx ED Physical Exam - General Limitations: No Limitations General appearance: alert, in no apparent distress - Head Head exam: Present: atraumatic, normocephalic - Eye Eye exam: Present: normal appearance - ENT ENT exam: Present: mucous membranes moist - Neck Neck exam: Present: normal inspection - Respiratory Respiratory exam: Present: normal lung sounds bilaterally. Absent: respiratory distress - Cardiovascular Cardiovascular Exam: Present: regular rate, normal rhythm, normal heart sounds. Absent: systolic murmur, diastolic murmur, rubs, gallop - GI/Abdominal GI/Abdominal exam: Present: soft, normal bowel sounds. Absent: distended, tenderness, guarding, rebound, rigid, bruit, hernia - Rectal Rectal exam: Present: deferred - Extremities Exam Extremities exam: Present: normal inspection - Back Exam Back exam: Present: normal inspection, full ROM. Absent: tenderness, CVA tenderness (R), CVA tenderness (L), vertebral tenderness, rash noted - Neurological Exam Neurological exam: Present: alert, oriented X3, CN II-XII intact, normal gait, reflexes normal - Psychiatric Psychiatric exam: Present: normal affect, normal mood - Skin Skin exam: Present: warm, dry, intact, normal color. Absent: rash ED Course Vital Signs 09/22/19 16:51 Temperature 98.8 F Pulse Rate 85 Respiratory 22 Rate Blood Pressure 144/88 [Left] O2 Sat by Pulse 99 Oximetry ED Medical Decision Making - Lab Data Result diagrams: 09/22/19 18:03 09/22/19 18:03 Labs 09/22/19 09/22/19 09/22/19 18:03 18:03 20:51 WBC 6.5 RBC 4.11 Hgb 11.9 Hct 36.5 MCV 89 MCH 29 MCHC 33 RDW 13.6 Plt Count 209 Lymph % (Auto) 21.9 Union % (Auto) 3.4 Eos % (Auto) 0.2 Baso % (Auto) 0.3 Lymph # 1.4 Union # 0.2 Eos # 0.0 Baso # 0.0 Seg Neutrophils % 74.2 H Seg Neutrophils # 4.8 Sodium 140 Potassium 4.1 Chloride 103.8 Carbon Dioxide 24 Anion Gap 16 BUN 12 Creatinine 0.7 Estimated GFR > 60 BUN/Creatinine Ratio 17 Glucose 108 H Calcium 9.6 Total Bilirubin 0.20 AST 32 ALT 48 Alkaline Phosphatase 85 Total Protein 7.7 Albumin 4.6 Albumin/Globulin Ratio 1.5 Lipase 15 Urine Color Yellow Urine Turbidity Slightly-cloudy Urine pH 7.0 Ur Specific Blair 1.030 Urine Protein 30 mg/dl Urine Glucose (UA) Neg Urine Ketones 80 Urine Blood Neg Urine Nitrite Neg Ur Reducing Substances Not Reportable Urine Bilirubin Neg Urine Ictotest Not Reportable Urine Urobilinogen < 2.0 Ur Leukocyte Esterase Sm Urine WBC (Auto) 6.0 Urine RBC (Auto) 4.0 U Epithel Cells (Auto) 15.0 H Urine Mucus 2+ Urine HCG, Qual Negative - Radiology Data Radiology results: report reviewed, image reviewed Findings Reporting MD: Jean Lopez Dictation Time: September 22, 2019 20:34 Health Administration Teacher: Not available Technical Clerk Date: ABDOMEN 1 VIEW(S) INDICATION / CLINICAL INFORMATION: abd pain/upt. COMPARISON: 06/25/2019. FINDINGS: TUBES / LINES: None. BOWEL GAS PATTERN: No significant abnormality. ADDITIONAL FINDINGS: No significant additional findings. IMPRESSION: No significant abnormality. Signer Name: Jean Lopez MD Signed: 09/22/2019 8:34 PM Workstation Name: [id number] - Medical Decision Making KUB normal, labs normal, ua: pos leuk, wbc , plan macrobid, naproxen, bentyl, follow up with pcp and GI as scheduled pt verbalized agreement and understanding of same. pt is tolerating po intake at this time without syhmptoms. pt will be dc'd to home in stable condition. Critical care attestation.: If time is entered above; I have spent that time in minutes in the direct care of this critically ill patient, excluding procedure time. ED Disposition Clinical Impression: Nausea and vomiting Qualifiers: Vomiting type: unspecified Vomiting Intractability: non-intractable Qualified Code(s): R11.2 - Nausea with vomiting, unspecified Disposition: DC- TO HOME OR SELFCARE Is pt being admited?: No Does the pt Need Aspirin: No Condition: Stable Instructions: Acute Nausea and Vomiting (ED) Prescriptions: Dicyclomine [Bentyl] 10 mg PO QID PRN #30 capsule PRN Reason: abdominal spasm traMADoL [Ultram] 50 mg PO Q6HR PRN #12 tablet PRN Reason: Pain Ondansetron [Zofran Odt] 4 mg PO Q8HR PRN #12 tab.rapdis PRN Reason: Nausea And Vomiting Referrals: MOY LONG MD [Staff Physician] - 3-5 Days [facility] [Provider Group] - 3-5 Days Forms: Work/School Release Form(ED) Time of Disposition: 22:00
[2019-09-22 20:44] VITALS: BP 144/88
[2019-09-22 21:02] LABS: HCG Qualitative,Urine Negative (Negative)
[2019-09-22 21:06] LABS: Bilirubin,Urine NEG (Negative); Blood,Urine NEG (Negative); Color,Urine Yellow (Yellow); Mucus,Urine 2+ /HPF; Urobilinogen,Urine < 2.0 mg/dL (<2.0)
--- NOTE | 2019-09-22 21:39 | XRay Report ---
ABDOMEN 1 VIEW(S) INDICATION / CLINICAL INFORMATION: abd pain/upt. COMPARISON: 06/25/2019. FINDINGS: TUBES / LINES: None. BOWEL GAS PATTERN: No significant abnormality. ADDITIONAL FINDINGS: No significant additional findings. IMPRESSION: No significant abnormality. Signer Name: Jean Lopez MD Signed: 09/22/2019 9:34 PM Workstation Name: [id number]
== END 2019-09-22 22:37 | disposition home or self-care (01) ==
LOC: ED 16:49
DX: R11.2 Nausea with vomiting, unspecified (principal); R10.9 Unspecified abdominal pain; Z90.49 Acquired absence of other specified parts of digestive tract; Z79.899 Other long term (current) drug therapy
CPT/HCPCS: 36415; 74018; 80053; 81001; 81025; 83690; 85025; 96361; 96374; 96375; 99284; J2270; J2405; J7030

== ENCOUNTER 2020-01-06 08:19 | Emergency (ER) | payer OTHER ==
[2020-01-06 08:25] VITALS: BP 124/66
--- NOTE | 2020-01-06 09:31 | Emergency Department Report ---
- General Chief complaint: Urogenital-Female Stated complaint: RISEN RT SIDE VAGINAL Time Seen by Provider: 01/06/20 08:59 Source: patient Mode of arrival: Ambulatory Limitations: No Limitations - History of Present Illness Initial comments: This is a 24-year-old female nontoxic, well nourished in appearance, no acute signs of distress presents to the ED with c/o of redness and pain with some swelling to right labia majora x2 days. Patient denies any pus or drainage. Patient denies any fever, chills, nausea, vomiting, chest pain, shortness of breath, headache or stiff neck. Patient denies any allergies or significant past medical history. -: days(s) Severity: mild Severity scale (0 -10): 8 Quality: aching Consistency: constant Improves with: none Worsens with: none Context: none Associated symptoms: denies other symptoms - Related Data Previous Rx's Medication Instructions Recorded Last Taken Type oxyCODONE /ACETAMINOPHEN [Percocet 1 tab PO Q4HR PRN #20 tab 06/27/19 Unknown Rx 5/325] Dicyclomine [Bentyl] 10 mg PO QID PRN #30 capsule 09/22/19 Unknown Rx Ondansetron [Zofran Odt] 4 mg PO Q8HR PRN #12 tab.rapdis 09/22/19 Unknown Rx traMADoL [Ultram] 50 mg PO Q6HR PRN #12 tablet 09/22/19 Unknown Rx Clindamycin [Clindamycin CAP] 300 mg PO Q8H #21 cap 01/06/20 Unknown Rx Allergies Allergy/AdvReac Type Severity Reaction Status Date / Time No Known Allergies Allergy Verified 09/21/18 02:25 Abscess Boil HPI - HPI Chief Complaint: Urogenital-Female Stated Complaint: RISEN RT SIDE VAGINAL Time Seen by Provider: 01/06/20 08:59 Home Medications: Previous Rx's Medication Instructions Recorded Last Taken Type oxyCODONE /ACETAMINOPHEN [Percocet 1 tab PO Q4HR PRN #20 tab 06/27/19 Unknown Rx 5/325] Dicyclomine [Bentyl] 10 mg PO QID PRN #30 capsule 09/22/19 Unknown Rx Ondansetron [Zofran Odt] 4 mg PO Q8HR PRN #12 tab.rapdis 09/22/19 Unknown Rx traMADoL [Ultram] 50 mg PO Q6HR PRN #12 tablet 09/22/19 Unknown Rx Clindamycin [Clindamycin CAP] 300 mg PO Q8H #21 cap 01/06/20 Unknown Rx Allergies/Adverse Reactions: Allergies Allergy/AdvReac Type Severity Reaction Status Date / Time No Known Allergies Allergy Verified 09/21/18 02:25 ED Review of Systems ROS: Stated complaint: RISEN RT SIDE VAGINAL Other details as noted in HPI Constitutional: denies: chills, fever Eyes: denies: eye pain, eye discharge, vision change ENT: denies: ear pain, throat pain Respiratory: denies: cough, shortness of breath, wheezing Cardiovascular: denies: chest pain, palpitations Endocrine: no symptoms reported Gastrointestinal: denies: abdominal pain, nausea, diarrhea Genitourinary: denies: urgency, dysuria, discharge Musculoskeletal: denies: back pain, joint swelling, arthralgia Skin: denies: rash, lesions Neurological: denies: headache, weakness, paresthesias Psychiatric: denies: anxiety, depression Hematological/Lymphatic: denies: easy bleeding, easy bruising ED Past Medical Hx - Past Medical History Previous Medical History?: Yes Hx Congestive Heart Failure: No Hx Diabetes: No Hx Asthma: No Hx COPD: No Additional medical history: Endometriosis, Vaginal delivery x 1 - Surgical History Past Surgical History?: Yes Hx Appendectomy: Yes () - Social History Smoking Status: Never Smoker Substance Use Type: None - Medications Home Medications: Home Medications Medication Instructions Recorded Confirmed Last Taken Type oxyCODONE /ACETAMINOPHEN [Percocet 1 tab PO Q4HR PRN #20 tab 06/27/19 Unknown Rx 5/325] Dicyclomine [Bentyl] 10 mg PO QID PRN #30 capsule 09/22/19 Unknown Rx Ondansetron [Zofran Odt] 4 mg PO Q8HR PRN #12 tab.rapdis 09/22/19 Unknown Rx traMADoL [Ultram] 50 mg PO Q6HR PRN #12 tablet 09/22/19 Unknown Rx Clindamycin [Clindamycin CAP] 300 mg PO Q8H #21 cap 01/06/20 Unknown Rx ED Physical Exam - General Limitations: No Limitations General appearance: alert, in no apparent distress - Head Head exam: Present: atraumatic, normocephalic - Eye Eye exam: Present: normal appearance - Neck Neck exam: Present: normal inspection, full ROM. Absent: tenderness, meningismus, lymphadenopathy - Respiratory Respiratory exam: Absent: respiratory distress - Cardiovascular Cardiovascular Exam: Present: regular rate - External exam: Present: normal external exam, other (Right labia majora tenderness to touch with slight swelling with no induration or fluctuance noted on exam. Punching Machine Operator Xiomara RN present during exam.). Absent: erythema, swelling, lesions, lacerations, ecchymosis, bleeding - Extremities Exam Extremities exam: Present: full ROM - Back Exam Back exam: Present: full ROM - Neurological Exam Neurological exam: Present: alert, oriented X3, normal gait - Psychiatric Psychiatric exam: Present: normal affect, normal mood - Skin Skin exam: Present: warm, dry, intact, normal color. Absent: rash ED Course Vital Signs 01/06/20 08:22 Temperature 99.8 F H Pulse Rate 93 H Respiratory 16 Rate Blood Pressure 124/66 O2 Sat by Pulse 100 Oximetry - Reevaluation(s) Reevaluation #1: 01/06/20 09:33 Patient is speaking in full sentences with no signs of distress noted. ED Medical Decision Making - Medical Decision Making This is a 24-year-old female that presents with right Bartolone cyst. Patient is stable and was examined by me. There is no induration, fluctuance. No signs of abscess formation. Patient was instructed to observe symptoms of increased redness or swelling and to return to the ER if this does occur. I will discharge patient with clindamycin. Patient was referred to Follow-up with a primary care doctor in 3-5 days or if symptoms worsen and continue return to emergency room as soon as possible. At time of discharge, the patient does not seem toxic or ill in appearance. No acute signs of distress noted. Patient agrees to discharge treatment plan of care. No further questions noted by the patient. Critical care attestation.: If time is entered above; I have spent that time in minutes in the direct care of this critically ill patient, excluding procedure time. ED Disposition Clinical Impression: Cyst of right Bartholin's gland Disposition: DC TO HOME OR SELFCARE Is pt being admited?: No Does the pt Need Aspirin: No Condition: Stable Instructions: Bartholin Cyst (ED) Additional Instructions: Follow-up with a primary care doctor in 3-5 days or if symptoms worsen and continue return to emergency room as soon as possible. Prescriptions: Clindamycin [Clindamycin CAP] 300 mg PO Q8H #21 cap Referrals: PRIMARY CAREMD [Primary Care Provider] - 3-5 Days KITTY PATEL MD [Staff Physician] - 3-5 Days Forms: Work/School Release Form(ED)
== END 2020-01-06 09:44 | disposition home or self-care (01) ==
LOC: ED 08:19
DX: N75.0 Cyst of Bartholin's gland (principal); Z90.49 Acquired absence of other specified parts of digestive tract; Z79.2 Long term (current) use of antibiotics; Z79.899 Other long term (current) drug therapy
CPT/HCPCS: 99282

== ENCOUNTER 2020-08-30 18:55 | Emergency (ER) | payer OTHER ==
[2020-08-30] MEDS ORDERED: ONDANSETRON 4 MG ODT TAB PO ONE (19:55)
[2020-08-30] MEDS ORDERED: DICYCLOMINE 20 MG TAB PO ONE (19:55)
--- NOTE | 2020-08-30 19:55 | Event Note ---
ED Screening Note Date of service: 08/30/20 Time: 19:54 ED Screening Note: Patient is a 25-year-old -[place]er female with a history of anxiety, chronic endometriosis, ovarian cyst who presents to the ED with complaint of acute onset persistent diffuse abdominal pain and bilateral flank pain, nausea and vomiting and chest pain for the last 12 hours. Patient states that the pain has been persistent, constant and that she is unable to keep anything down because of intractable nausea and vomiting. Patient denies dizziness, diarrhea, fever, chills, dysuria, urinary frequency and urgency, vaginal bleeding, vaginal discharge, hematemesis, hematochezia, change in vision, palpitations or shortness of breath. This initial assessment/diagnostic orders/clinical plan/treatment(s) is/are subject to change based on patients health status, clinical progression and re- assessment by fellow clinical providers in the ED. Further treatment and workup at subsequent clinical providers discretion. Patient/guardian urged not to elope from the ED as their condition may be serious if not clinically assessed and managed. Initial orders include: CBC, CMP, troponin, lipase, UA, urine hCG, CT abdomen pelvis with contrast; chest x-ray
[2020-08-30 20:38] LABS: HCG Qualitative,Urine Negative (Negative)
[2020-08-30 20:43] LABS: Alanine Aminotransferase 14 units/L (7-56); Blood Urea Nitrogen 10 mg/dL (7-17); Calcium 10.1 mg/dL (8.4-10.2); Hemolysis Index 4
[2020-08-30 20:47] LABS: BUN/Creatinine Ratio 14
[2020-08-30 20:49] LABS: Bilirubin,Urine NEG (Negative); Blood,Urine NEG (Negative); Color,Urine Yellow (Yellow); Hyaline Casts,Urine 3 /LPF; Mucus,Urine 3+ /HPF; Urobilinogen,Urine < 2.0 mg/dL (<2.0)
[2020-08-30 21:01] LABS: Basophils % (Auto) 0.1 % (0.0-1.8); Hematocrit 39.3 % (30.3-42.9); Hemoglobin 13.2 gm/dl (10.1-14.3); Lymphocytes # (Auto) 1.5 K/mm3 (1.2-5.4); Lymphocytes % (Auto) 9.7 % (13.4-35.0); Mean Corpuscular HGB Conc 34 % (30-34); Mean Corpuscular Volume 89 fl (79-97); Monocytes # (Auto) 0.9 K/mm3 (0.0-0.8); Monocytes % (Auto) 5.7 % (0.0-7.3); Platelet Count 298 K/mm3 (140-440); Red Blood Count 4.41 M/mm3 (3.65-5.03); Red Cell Distribution Width 12.7 % (13.2-15.2)
--- NOTE | 2020-08-30 21:21 | XRay Report ---
XR chest routine 2V INDICATION / CLINICAL INFORMATION: chest pain. COMPARISON: None available. FINDINGS: SUPPORT DEVICES: None. HEART /PULMONARY VASCULATURE: No significant abnormality. LUNGS / PLEURA: No significant pulmonary or pleural abnormality. No pneumothorax. ADDITIONAL FINDINGS: No significant additional findings. IMPRESSION: 1. No acute findings. Signer Name: Nithin Hull MD Signed: 08/30/2020 9:17 PM Workstation Name: [id number]
[2020-08-30] MEDS ORDERED: ONDANSETRON 4 MG/2 ML INJ IV ONE (23:13)
[2020-08-30] MEDS ORDERED: MORPHINE 4 MG/1 ML INJ IV ONE (23:13)
[2020-08-30] MEDS ORDERED: SODIUM CHLORIDE 0.9% 1000 ML 1,000 ML IV ONE (23:14)
--- NOTE | 2020-08-30 23:16 | Emergency Department Report ---
HPI - General Chief Complaint: Abdominal Pain Time Seen by Provider: 08/30/20 23:01 - HPI HPI: This is a 25-year-old -Citizen Of The [place] female presents to the emergency department from home with complaint of generalized abdominal pain, right-sided back "kidney" pain, some midsternal chest discomfort, diarrhea, nausea with vomiting, that started this morning. She has a past medical history of endometriosis and a previous small bowel obstruction. She denies any fever, shortness of breath, vaginal bleeding or discharge, dysuria, lower extremity swelling. Currently her abdominal pain is 10 out of 10 in intensity. She had the chest pain earlier that has since resolved. No known aggravating or alleviating factors. No recent travel or sick contacts at home. The patient did not try anything for her symptoms prior to presentation. She was given some Bentyl and Zofran ODT through triage that did not help her symptoms. ED Past Medical Hx - Past Medical History Hx Congestive Heart Failure: No Hx Diabetes: No Hx Asthma: No Hx COPD: No Additional medical history: Endometriosis, Vaginal delivery x 1 - Surgical History Hx Appendectomy: Yes () - Social History Smoking Status: Never Smoker Substance Use Type: None - Medications Home Medications: Home Medications Medication Instructions Recorded Confirmed Last Taken Type oxyCODONE /ACETAMINOPHEN [Percocet 1 tab PO Q4HR PRN #20 tab 06/27/19 Unknown Rx 5/325] Dicyclomine [Bentyl] 10 mg PO QID PRN #30 capsule 09/22/19 Unknown Rx Ondansetron [Zofran Odt] 4 mg PO Q8HR PRN #12 tab.rapdis 09/22/19 Unknown Rx traMADoL [Ultram] 50 mg PO Q6HR PRN #12 tablet 09/22/19 Unknown Rx Clindamycin [Clindamycin CAP] 300 mg PO Q8H #21 cap 01/06/20 Unknown Rx Ondansetron [Zofran Odt] 4 mg PO Q8HR PRN #15 tab.rapdis 08/31/20 Unknown Rx ED Review of Systems ROS: Stated complaint: ABD PAIN, KIDNEY PAIN Other details as noted in HPI Comment: All other systems reviewed and negative Constitutional: denies: chills, fever Eyes: denies: eye pain, vision change ENT: denies: ear pain, throat pain Respiratory: denies: cough, shortness of breath Cardiovascular: chest pain. denies: palpitations Gastrointestinal: abdominal pain, nausea, vomiting, diarrhea Genitourinary: denies: dysuria, discharge Musculoskeletal: back pain. denies: arthralgia Skin: denies: rash, lesions Neurological: denies: headache, weakness Physical Exam - Physical Exam Vital Signs: Vital Signs 08/30/20 19:53 Temperature 99.5 F Pulse Rate 99 H Respiratory 16 Rate Blood Pressure 116/60 O2 Sat by Pulse 100 Oximetry Physical Exam: GENERAL: The patient is well-developed well-nourished. HENT: Normocephalic. Atraumatic. Patient has moist mucous membranes. EYES: Extraocular motions are intact. NECK: Supple. Trachea is midline. CHEST/LUNGS: Clear to auscultation. There is no respiratory distress noted. HEART/CARDIOVASCULAR: Regular. There is no tachycardia. There is no murmur. ABDOMEN: Abdomen is soft. Generalized abdominal tenderness to palpation. No guarding. Patient has normal bowel sounds. There is no abdominal distention. SKIN: Skin is warm and dry. NEURO: The patient is awake, alert, and oriented. The patient is cooperative. The patient has no focal neurologic deficits. Normal speech. MUSCULOSKELETAL: There is no tenderness or deformity. There is no limitation range of motion. ED Course Vital Signs 08/30/20 19:53 Temperature 99.5 F Pulse Rate 99 H Respiratory 16 Rate Blood Pressure 116/60 O2 Sat by Pulse 100 Oximetry ED Medical Decision Making - Lab Data Result diagrams: 08/30/20 19:57 08/30/20 19:57 Lab Results 08/30/20 08/30/20 08/30/20 Range/Units 19:57 19:57 Unknown WBC 15.3 H (4.5-11.0) K/mm3 RBC 4.41 (3.65-5.03) M/mm3 Hgb 13.2 (10.1-14.3) gm/dl Hct 39.3 (30.3-42.9) % MCV 89 (79-97) fl MCH 30 (28-32) pg MCHC 34 (30-34) % RDW 12.7 L (13.2-15.2) % Plt Count 298 (140-440) K/mm3 Lymph % (Auto) 9.7 L (13.4-35.0) % Luna % (Auto) 5.7 (0.0-7.3) % Eos % (Auto) 0.0 (0.0-4.3) % Baso % (Auto) 0.1 (0.0-1.8) % Lymph # (Auto) 1.5 (1.2-5.4) K/mm3 Luna # (Auto) 0.9 H (0.0-0.8) K/mm3 Eos # (Auto) 0.0 (0.0-0.4) K/mm3 Baso # (Auto) 0.0 (0.0-0.1) K/mm3 Seg Neutrophils % 84.5 H (40.0-70.0) % Seg Neutrophils # 12.9 H (1.8-7.7) K/mm3 Sodium 137 (137-145) mmol/L Potassium 3.9 (3.6-5.0) mmol/L Chloride 98.9 (98-107) mmol/L Carbon Dioxide 25 (22-30) mmol/L Anion Gap 17 mmol/L BUN 10 (7-17) mg/dL Creatinine 0.7 (0.6-1.2) mg/dL Estimated GFR > 60 ml/min BUN/Creatinine Ratio 14 % Glucose 105 H (65-100) mg/dL Calcium 10.1 (8.4-10.2) mg/dL Total Bilirubin 0.90 (0.1-1.2) mg/dL AST 13 (5-40) units/L ALT 14 (7-56) units/L Alkaline Phosphatase 107 (35-129) units/L Troponin T < 0.010 (0.00-0.029) ng/mL Total Protein 8.3 H (6.3-8.2) g/dL Albumin 5.0 (3.9-5) g/dL Albumin/Globulin Ratio 1.5 % Lipase 13 (13-60) units/L Urine Color Yellow (Yellow) Urine Turbidity Clear (Clear) Urine pH 7.0 (5.0-7.0) Ur Specific [place] 1.025 (1.003-1.030) Urine Protein 30 mg/dl (Negative) mg/dL Urine Glucose (UA) Neg (Negative) mg/dL Urine Ketones 20 (Negative) mg/dL Urine Blood Neg (Negative) Urine Nitrite Neg (Negative) Ur Reducing Substances Not Reportable Urine Bilirubin Neg (Negative) Urine Ictotest Not Reportable Urine Urobilinogen < 2.0 (<2.0) mg/dL Ur Leukocyte Esterase Tr (Negative) Urine WBC (Auto) 4.0 (0.0-6.0) /HPF Urine RBC (Auto) 3.0 (0.0-6.0) /HPF U Epithel Cells (Auto) 3.0 (0-13.0) /HPF Hyaline Casts 3 /LPF Urine Mucus 3+ /HPF Urine HCG, Qual Negative (Negative) - EKG Data -: EKG Interpreted by Me EKG shows normal: sinus rhythm, axis, intervals, QRS complexes, ST-T waves Rate: normal - EKG Data When compared to previous EKG there are: previous EKG unavailable Interpretation: normal EKG - Radiology Data Radiology results: report reviewed, image reviewed interpreted by me: Chest x-ray does not show any acute process. There are no pleural effusions, obvious pneumonia and there is no pneumothorax. CT ABDOMEN AND PELVIS WITH CONTRAST HISTORY: abdominal pain, nausea, vomiting. COMPARISON: None. TECHNIQUE: CT images of the abdomen and pelvis were obtained following administration of intravenous contrast. All CT scans at this location are performed using CT dose reduction for ALARA by means of automated exposure control. CONTRAST: 100 ml of intravenous contrast administered. FINDINGS: Lungs/bones: Lung bases are clear Abdomen/pelvis: The liver, spleen, adrenal glands, pancreas, gallbladder and upper GI tract appear normal. Kidneys are unremarkable. There is postsurgical change within the bowel loops in the right lower abdomen. There are a few dilated/distended small bowel loops however no definite evidence for obstruction. There is gas throughout the colon. No jason nant adenopathy is seen. IMPRESSION: 1. Postsurgical change from prior bowel surgery. There are a few dilated/distended small bowel loops in left abdomen measuring up to 3 cm however no definite obstruction is seen. Gas and fluid is seen throughout the colon. Clinical correlation and follow-up recommended. 2. No significant free fluid in the abdomen or pelvis. - Medical Decision Making This patient presents to the emergency department with a complaint of abdominal pain, chest pain that has since resolved, nausea with vomiting, and some diarrhea, since this morning. On examination the patient has some tenderness to palpation to the generalized abdomen. However, the abdomen is soft, nondistended and nontoxic in appearance. Heart and lung sounds are normal to auscultation. The patient does not appear in any respiratory distress. The patient's labs have been mostly unremarkable including CBC, CMP, lipase, urinalysis, and the patient is not . There is a very mild leukocytosis of 15,000. Urinalysis shows 20 ketones which is a marker for some mild dehydration. EKG did not have any morphology consistent ST elevation myocardial infarction. Chest x-ray did not show any pneumonia, pleural effusions, pneumothorax, widened mediastinum, or any other acute process. CT scan of the abdomen pelvis with IV contrast did not show any acute process in the abdomen or pelvis or etiology of the patient's discomfort. She was given some IV fluid resuscitation, antiemetic, and a dose of IV analgesia. She was reevaluated multiple times her multiple hours and says she is feeling greatly improved. Able to pass an oral challenge. The patient was seen ambulatory and both appears and feels stable. Vital signs have been reassuring throughout her ED course including being afebrile. For all these reasons patient appears safe for discharge home at this time. She has been instructed to follow-up with primary care and has been given an outpatient referral for gastroenterology. She will return to the emergency department with any worsening of her symptoms or with any acute distress. Critical Care Time: No Critical care attestation.: If time is entered above; I have spent that time in minutes in the direct care of this critically ill patient, excluding procedure time. ED Disposition Clinical Impression: Nausea and vomiting in adult, Dehydration Abdominal pain Qualifiers: Abdominal location: generalized Qualified Code(s): R10.84 - Generalized abdominal pain Disposition: DC- TO HOME OR SELFCARE Is pt being admited?: No Condition: Stable Instructions: Abdominal Pain, Adult, Vomiting, Adult, Dehydration, Adult, Abdominal Pain (ED) Additional Instructions: Please follow-up with a primary care physician in the next few days. I am giving you a referral for [facility] to follow-up regarding your abdominal pain. Increase your oral rehydration. Return to the emergency department with any worsening of your symptoms, new or concerning symptoms not addressed during this current emergency department visit, or with any acute distress. Prescriptions: Ondansetron [Zofran Odt] 4 mg PO Q8HR PRN #15 tab.rapdis PRN Reason: Nausea Referrals: [facility] [Provider Group] - 2-3 Days [facility] [Provider Group] - 2-3 Days Time of Disposition: 00:55
[2020-08-31 00:50] VITALS: BP 120/76
--- NOTE | 2020-08-31 00:51 | Cat Scan Report ---
CT ABDOMEN AND PELVIS WITH CONTRAST HISTORY: abdominal pain, nausea, vomiting. COMPARISON: None. TECHNIQUE: CT images of the abdomen and pelvis were obtained following administration of intravenous contrast. All CT scans at this location are performed using CT dose reduction for ALARA by means of automated exposure control. CONTRAST: 100 ml of intravenous contrast administered. FINDINGS: Lungs/bones: Lung bases are clear Abdomen/pelvis: The liver, spleen, adrenal glands, pancreas, gallbladder and upper GI tract appear n ormal. Kidneys are unremarkable. There is postsurgical change within the bowel loops in the right low er abdomen. There are a few dilated/distended small bowel loops however no definite evidence for obst ruction. There is gas throughout the colon. No dominant adenopathy is seen. IMPRESSION: 1. Postsurgical change from prior bowel surgery. There are a few dilated/distended small bowel loops in left abdomen measuring up to 3 cm however no definite obstruction is seen. Gas and fluid is seen t hroughout the colon. Clinical correlation and follow-up recommended. 2. No significant free fluid in the abdomen or pelvis. Signer Name: Felipe Davis MD Signed: 08/31/2020 12:47 AM Workstation Name: [id number]
--- NOTE | 2020-09-04 09:40 | Electrocardiograph Report ---
[facility] Test Date: 2020-08-30 Test Time: 23:25:23 Pat Name: EMMA SINGH Department: Room: Gender: F Form Carpenter: RAMESH : 1995 Requested By: GEOVANI MARTÍNEZ Order Number: [id number] Reading MD: Sean Maldonado Measurements Intervals [place] Rate: 73 P: 78 IN: 150 QRS: 64 QRSD: 87 T: 45 QT: 367 QTc: 404 Interpretive Statements Sinus rhythm No previous ECG available for comparison Electronically Signed On 09-04-2020 9:40:10 EDT by Sean Maldonado
== END 2020-08-31 01:20 | disposition home or self-care (01) ==
LOC: ED 18:55
DX: E86.0 Dehydration (principal); R11.2 Nausea with vomiting, unspecified; R10.9 Unspecified abdominal pain; Z79.899 Other long term (current) drug therapy; Z90.49 Acquired absence of other specified parts of digestive tract
CPT/HCPCS: 36415; 71046; 74177; 80053; 81001; 81025; 83690; 84484; 85025; 93005; 96361; 96374; 96375; 99284; J2270; J2405; J7030; Q9967; Q0162